=== PATIENT | female | born 1960 | race Caucasian/White ===

== ENCOUNTER → 2019-01-01 | Outpatient (CLI) | payer BC, SELFPAY ==
[2019-01-01 15:18] VITALS: BMI 23.1
--- NOTE | 2019-01-01 15:35 | RAD_ITS ---
STUDY: X-RAY - UNILATERAL RIBS ( RIGHT ) WITH CHEST REASON FOR EXAM: Female, 58 years old. Mid lateral rib pain following injury. TECHNIQUE - RIBS: 2 view(s) of the ribs. TECHNIQUE - CHEST: Single PA view of the chest. COMPARISON: None. FINDINGS - RIBS: Normal visualized ribs without a demonstrated fracture. FINDINGS - CHEST: The lungs are clear and expanded. There is no demonstrated pleural abnormality. Normal size heart. Normal mediastinum and kahlil. Normal visualized pulmonary arteries. Normal visualized aortic arch and descending thoracic aorta. Normal visualized thoracic spine. Normal visualized ribs, clavicles, and shoulders. There is no demonstrated abnormality of the visualized soft tissue structures of the upper abdomen. RAD/Ribs Uni Min 3V w/PA Chest IMPRESSION: RIBS: Normal x-ray examination of the ribs. CHEST: Normal x-ray examination of the chest. Electronically Signed: Sanju Brenner, at 16:00 EDT , Service support ,
== END | disposition home or self-care (01) ==
LOC: HPRAD 15:34
PROVIDERS: Family Provider Family Medicine; PCP Family Medicine; Referring Provider Physician Assistant; Visit Provider Physician Assistant
DX: S29.9XXA Unspecified injury of thorax, initial encounter (principal)
CPT/HCPCS: 71101

== ENCOUNTER → 2019-08-22 11:05 | Outpatient (CLI) | payer BC, SELFPAY ==
[2019-01-01 15:18] VITALS: BMI 23.1
--- NOTE | 2019-08-22 11:15 | RAD_ITS ---
STUDY: X-RAY CHEST REASON FOR EXAM: Female, 59 years old. Rib pain TECHNIQUE: Frontal and lateral views of the chest COMPARISON: 01/01/2019 FINDINGS: The lungs are clear. There are no pleural effusions. There is no pneumothorax. The heart is normal in size. The visualized osseous structures are within normal limits. RAD/Chest PA and Lateral IMPRESSION: No acute thoracic pathology. If the patient''s rib pain persists, consider dedicated rib radiographs. Electronically Signed: Leander James, at 17:00 EDT Tel , Service support ,
== END ==
PROVIDERS: PCP Family Medicine Geriatric Medicine; Referring Provider Family Medicine Geriatric Medicine; Visit Provider Family Medicine Geriatric Medicine
DX: R07.89 Other chest pain (principal)
CPT/HCPCS: 71046

== ENCOUNTER → 2019-08-22 11:06 | Outpatient (CLI) | payer BC, SELFPAY ==
[2019-01-01 15:18] VITALS: BMI 23.1
[2019-08-22 12:41] LABS: Absolute Lymphocyte Count 1.89 X10^3/uL (0.83-4.51); Absolute Neutrophil Count 2.5 X10^3/uL (2.0-7.7); Basophil# 0.05 X10^3/uL; Eosinophil# 0.09 X10^3/uL; Eosinophils% 1.8 % (0-5); Hematocrit 39.5 % (37-47); Hemoglobin 12.6 g/dL (12.0-15.0); Lymphocyte # 1.89 X10^3/ul (4.0); Lymphocyte % 38.7 % (19-41); Mean Corp Hgb Conc 31.9 g/dL (32-36); Mean Corpuscular Hgb 30.4 pg (27.0-32.0); Mean Corpuscular Volume 95.2 fL (81-99); Mean Platelet Vol. 11.4 fl (6.2-12.0); Monocyte# 0.36 X10^3/uL; Monocyte% 7.4 % (0-10); NRBC Flagged by Analyzer 0 % (0-5); Neutrophil # 2.49 X10^3/uL (2.7-7.7); Neutrophil % 50.9 % (47-70); POSITIVE MORPHOLOGY YES; Platelet Count 144 K/mm3 (150-450); RBC Distribution Width CV 12.9 % (11.6-14.6); RBC Distribution Width SD 44.5 fl (35.1-43.9); Red Blood Count 4.15 M/mm3 (4.2-5.4); White Blood Count 4.9 K/mm3 (4.4-11.0)
[2019-08-22 12:45] LABS: AST(SGOT) 17 U/L (15-37); Alanine Aminotransfer ALT/SGPT 20 U/L (13-56); Albumin, Serum 3.8 g/dL (3.2-5.0); Alkaline Phosphatase 69 U/L (45-117); Anion Gap 6 (5-15); BUN 16 mg/dL (7-18); BUN/Creat Ratio 29.5 RATIO (10-20); Calcium,Total 8.9 mg/dL (8.5-10.1); Chloride 107 mmol/L (98-107); Creatinine, Serum 0.54 mg/dL (0.55-1.02); EST Glomerular Filtration Rate 123 mL/min (>60); Est Glom Filt Rate - Afr Amer 149 mL/min (>60); Globulin 3.7 g/dL (2.2-4.2); Glucose 98 mg/dL (74-106); Potassium 3.8 mmol/L (3.5-5.1); Protein, Total 7.5 g/dL (6.4-8.2); Sodium Level 140 mmol/L (136-145)
[2019-08-22 12:52] LABS: Differential Indicated SCAN CRITERIA MET
[2019-08-22 13:17] LABS: Hepatitis C Antibody Non-Reactive (Nonreactive); Vitamin D,25 Hydroxy 35.4 ng/mL
[2019-08-22 13:36] LABS: Reactive Lymphocyte RARE
== END ==
PROVIDERS: PCP Family Medicine; Visit Provider Family Medicine Geriatric Medicine
DX: E55.9 Vitamin D deficiency, unspecified (principal); R53.83 Other fatigue; Z13.89 Encounter for screening for other disorder
CPT/HCPCS: 36415; 80053; 82306; 84443; 85025; 86803

== ENCOUNTER → 2019-08-30 11:16 | Outpatient (CLI) | payer BC, SELFPAY ==
[2019-08-22 13:15] VITALS: BMI 23.1
[2019-08-30 12:52] LABS: T3 Uptake 40 % (30-39); T4 Free Direct 1.44 ng/dL (0.76-1.46)
== END ==
PROVIDERS: PCP Family Medicine Geriatric Medicine; Visit Provider Family Medicine Geriatric Medicine
DX: E03.9 Hypothyroidism, unspecified (principal)
CPT/HCPCS: 36415; 84439; 84479

== ENCOUNTER → 2019-09-05 08:00 | Outpatient (CLI) | payer BC, SELFPAY ==
[2019-08-22 13:15] VITALS: BMI 23.1
--- NOTE | 2019-09-05 07:53 | BI_ITS ---
MAMMOGRAPHY - BILATERAL SCREENING REASON FOR EXAM: Female, 59 years old. Routine annual screening examination. PERTINENT HISTORY: Sister with breast cancer. Remote left excisional breast biopsy. TECHNIQUE: Digital bilateral breast shabbir (3D mammographic acquisition) in the CC and MLO projections. 2-D mediolateral oblique (MLO) and craniocaudad (CC) views of both breasts were obtained. CAD: Full Field Digital Mammography with Computer Added Detection was performed. COMPARISON: Comparison is made with prior abdomen examination dated August 31, 2017. FINDINGS: Breast Composition: The breasts are extremely dense, which lowers the sensitivity of mammography. There are no dominant masses or suspicious calcifications. Focal architectural distortion is seen in the axillary region of the left breast in keeping with the history of prior excisional breast biopsy. No other significant abnormalities are identified. There has been no significant change since the prior study. BI/SCREEN MAMM (CAD) W/SHABBIR BILAT IMPRESSION: Stable bilateral screening mammogram. Yearly follow-up mammogram recommended. (A) ASSESSMENT CATEGORY: BIRADS Category 2: Benign. A letter regarding these results will be sent to the patient by the facility within 30 days. Approximately 10% of breast cancers are not detected by mammography. A normal mammogram should not delay biopsy of a clinically suspicious abnormality. [id number] Electronically Signed: Sanju Brenner, at 14:37 EDT , Service support ,
== END ==
PROVIDERS: PCP Family Medicine Geriatric Medicine; Referring Provider Family Medicine Geriatric Medicine; Visit Provider Family Medicine Geriatric Medicine
DX: Z12.31 Encounter for screening mammogram for malignant neoplasm of breast (principal)
CPT/HCPCS: 77063; 77067

== ENCOUNTER → 2019-10-17 13:50 | Outpatient (CLI) | payer BC, SELFPAY ==
[2019-10-17 10:35] VITALS: BMI 23.1
[2019-10-19 17:41] LABS: HPV APTIMA, High Risk Negative (Negative)
== END ==
PROVIDERS: PCP Family Medicine Geriatric Medicine; Visit Provider Obstetrics & Gynecology
DX: Z12.4 Encounter for screening for malignant neoplasm of cervix (principal)
CPT/HCPCS: 87624; 88175; G0145

== ENCOUNTER → 2020-08-15 09:46 | Outpatient (CLI) | payer BC, SELFPAY ==
[2020-04-04 09:55] VITALS: BMI 22.5
--- NOTE | 2020-08-15 09:50 | RAD_ITS ---
STUDY: X-RAY - RIGHT FOOT CLINICAL: Female, 60 years old. FOOT PAIN TECHNIQUE: 3 view(s) of the foot. COMPARISON: None. FINDINGS: Normal talus, calcaneus, and tarsal bones. Small plantar calcaneal enthesophyte. Normal visualized subtalar, talonavicular, calcaneocuboid, tarsal and tarsometatarsal articulations. Normal metatarsi. There is degenerative arthrosis of the metatarsophalangeal joint of the hallux with a hallux valgus deformity. Normal tibial and fibular sesamoid bones. Normal interphalangeal joint of the great toe. Normal phalanges of the great toe. Normal second through fifth metatarsophalangeal joints. Normal interphalangeal joints and phalanges of the lesser toes. The soft tissue structures are unremarkable. RAD/Foot min 3 Views IMPRESSION: Moderate hallux valgus deformity. Electronically Signed: Johnny Whitaker MD at 10:03 EDT Tel , Service support ,
== END ==
PROVIDERS: PCP Family Medicine Geriatric Medicine; Referring Provider Family Medicine Geriatric Medicine; Visit Provider Family Medicine Geriatric Medicine
DX: M79.609 Pain in unspecified limb (principal)
CPT/HCPCS: 73630

== ENCOUNTER → 2020-08-27 11:15 | Outpatient (CLI) | payer BC, SELFPAY ==
[2020-04-04 09:55] VITALS: BMI 22.5
[2020-08-27 11:53] LABS: Absolute Lymphocyte Count 2.34 X10^3/uL (0.83-4.51); Absolute Neutrophil Count 3.4 X10^3/uL (2.0-7.7); Basophil# 0.07 X10^3/uL; Basophil% 1.1 % (0-1); Eosinophil# 0.18 X10^3/uL; Eosinophils% 2.7 % (0-5); Hematocrit 41.1 % (37-47); Hemoglobin 13.1 g/dL (12.0-15.0); Lymphocyte # 2.34 X10^3/ul (0.83-4.51); Lymphocyte % 35.7 % (19-41); Mean Corp Hgb Conc 31.9 g/dL (32-36); Mean Corpuscular Hgb 29.7 pg (27.0-32.0); Mean Corpuscular Volume 93.2 fL (81-99); Mean Platelet Vol. 10.3 fl (6.2-12.0); Monocyte# 0.53 X10^3/uL; Monocyte% 8.1 % (0-10); NRBC Flagged by Analyzer 0 % (0-5); Neutrophil # 3.41 X10^3/uL (2.7-7.7); Neutrophil % 51.9 % (47-70); Platelet Count 180 K/mm3 (150-450); RBC Distribution Width CV 13.2 % (11.6-14.6); RBC Distribution Width SD 45.1 fl (35.1-43.9); Red Blood Count 4.41 M/mm3 (4.2-5.4); White Blood Count 6.6 K/mm3 (4.4-11.0)
[2020-08-27 12:39] LABS: ALB/GLOB Ratio 1.1 RATIO (0.9-2.4); AST(SGOT) 9 U/L (15-37); Alanine Aminotransfer ALT/SGPT 17 U/L (13-56); Albumin, Serum 3.9 g/dL (3.2-5.0); Alkaline Phosphatase 68 U/L (45-117); Anion Gap 6 (5-15); BUN 16 mg/dL (7-18); BUN/Creat Ratio 25.8 RATIO (10-20); Calcium,Total 8.8 mg/dL (8.5-10.1); Chloride 109 mmol/L (98-107); Creatinine, Serum 0.62 mg/dL (0.55-1.02); EST Glomerular Filtration Rate 105 mL/min (>60); Est Glom Filt Rate - Afr Amer 127 mL/min (>60); Globulin 3.5 g/dL (2.2-4.2); Glucose 94 mg/dL (74-106); Potassium 3.9 mmol/L (3.5-5.1); Protein, Total 7.4 g/dL (6.4-8.2); Sodium Level 140 mmol/L (136-145)
== END ==
PROVIDERS: PCP Family Medicine Geriatric Medicine; Visit Provider Family Medicine Geriatric Medicine
DX: R53.83 Other fatigue (principal)
CPT/HCPCS: 36415; 80053; 84443; 85025

== ENCOUNTER → 2020-09-10 16:03 | Outpatient (CLI) | payer BC, SELFPAY ==
[2020-04-04 09:55] VITALS: BMI 22.5
--- NOTE | 2020-09-10 16:06 | BI_ITS ---
MAMMOGRAPHY - BILATERAL SCREENING REASON FOR EXAM: Female, 60 years old. Routine annual screening examination. PERTINENT HISTORY: Sister with breast cancer. Remote left excisional breast biopsy. TECHNIQUE: Digital bilateral breast shabbir (3D mammographic acquisition) in the CC and MLO projections. 2-D mediolateral oblique (MLO) and craniocaudad (CC) views of both breasts were obtained. CAD: Full Field Digital Mammography with Computer Added Detection was performed. COMPARISON: Comparison is made with prior study dated 09/05/2019. FINDINGS: Breast Composition: The breasts are extremely dense, which lowers the sensitivity of mammography. There are no dominant masses or suspicious calcifications. No other significant abnormalities are identified. There has been no significant change since the prior study. BI/SCRN MAMM (CAD)W/SHABBIR BILAT IMPRESSION: Stable bilateral screening mammogram. Yearly follow-up mammogram recommended. (A) ASSESSMENT CATEGORY: BIRADS Category 1: Negative. A letter regarding these results will be sent to the patient by the facility within 30 days. Approximately 10% of breast cancers are not detected by mammography. A normal mammogram should not delay biopsy of a clinically suspicious abnormality. [id number] Electronically Signed: Sanju Brenner MD at 8:23 EDT , Service support ,
== END ==
PROVIDERS: PCP Family Medicine Geriatric Medicine; Referring Provider Family Medicine Geriatric Medicine; Visit Provider Family Medicine Geriatric Medicine
DX: Z12.31 Encounter for screening mammogram for malignant neoplasm of breast (principal)
CPT/HCPCS: 77063; 77067

== ENCOUNTER 2021-03-10 13:20 | Outpatient (CLI) | payer BC, SELFPAY | END 2021-03-10 23:59 | disposition short-term general hospital (02) | PROVIDERS: PCP Family Medicine Geriatric Medicine; Referring Provider Family Medicine Geriatric Medicine; Visit Provider Family Medicine Geriatric Medicine | DX: R68.83 Chills (without fever) (principal) | CPT/HCPCS: 87635; C9803; U0003; U0005 ==

== ENCOUNTER 2021-03-13 15:22 | Outpatient (CLI) | payer BC, SELFPAY ==
[2021-03-13 15:42] VITALS: BP 119/62; PULSE 60; RESP 16; TEMP 36.4; O2SAT 95; BMI 21.9
[2021-03-13] MEDS: 0.9% Saline Lock 10 ML Syringe IV (15:46)
[2021-03-13 16:15] VITALS: BP 132/75; PULSE 63; RESP 16; TEMP 36.7; O2SAT 99
[2021-03-13 17:00] VITALS: BP 139/72; PULSE 62; RESP 16; TEMP 36.4; O2SAT 99
== END 2021-03-13 23:59 | disposition home or self-care (01) ==
LOC: MS3OUT 15:22 → MS3 15:23
PROVIDERS: PCP Family Medicine Geriatric Medicine; Referring Provider Nurse Practitioner Adult Health; Visit Provider Nurse Practitioner Adult Health
DX: Z23 Encounter for immunization (principal); U07.1 COVID-19
CPT/HCPCS: J7050; M0243; A4216; Q0244

== ENCOUNTER → 2021-09-02 | Outpatient (CLI) | payer BC, SELFPAY ==
[2021-09-02 11:16] LABS: Absolute Lymphocyte Count 1.69 X10^3/uL (0.83-4.51); Absolute Neutrophil Count 2.2 X10^3/uL (2.0-7.7); Basophil# 0.04 X10^3/uL; Basophil% 0.9 % (0-1); Eosinophil# 0.15 X10^3/uL; Eosinophils% 3.3 % (0-5); Hemoglobin 12.7 g/dL (12.0-15.0); Lymphocyte # 1.69 X10^3/ul (0.83-4.51); Mean Corp Hgb Conc 31.8 g/dL (32-36); Mean Corpuscular Hgb 30.2 pg (27.0-32.0); Mean Corpuscular Volume 95.2 fL (81-99); Mean Platelet Vol. 11.7 fl (6.2-12.0); Monocyte# 0.47 X10^3/uL; Monocyte% 10.3 % (0-10); NRBC Flagged by Analyzer 0 % (0-5); Neutrophil # 2.21 X10^3/uL (2.7-7.7); Neutrophil % 48.3 % (47-70); POSITIVE MORPHOLOGY YES; Platelet Count 152 K/mm3 (150-450); RBC Distribution Width CV 12.8 % (11.6-14.6); RBC Distribution Width SD 44.6 fl (35.1-43.9); White Blood Count 4.6 K/mm3 (4.4-11.0)
[2021-09-02 11:20] LABS: Differential Indicated SCAN CRITERIA MET
[2021-09-02 11:41] LABS: ALB/GLOB Ratio 1.1 RATIO (0.9-2.4); AST(SGOT) 16 U/L (15-37); Alanine Aminotransfer ALT/SGPT 22 U/L (13-56); Albumin, Serum 3.7 g/dL (3.2-5.0); Alkaline Phosphatase 58 U/L (45-117); Anion Gap 4 (5-15); BUN 20 mg/dL (7-18); BUN/Creat Ratio 34.6 RATIO (10-20); Chloride 108 mmol/L (98-107); Creatinine, Serum 0.58 mg/dL (0.55-1.02); EST Glomerular Filtration Rate 114 mL/min (>60); Est Glom Filt Rate - Afr Amer 137 mL/min (>60); Globulin 3.3 g/dL (2.2-4.2); Glucose 98 mg/dL (74-106); Potassium 4.3 mmol/L (3.5-5.1); Sodium Level 139 mmol/L (136-145); Thyroid Stim Hormone (TSH) 0.07 uIU/mL (0.358-3.74)
[2021-09-02 11:58] LABS: Atypical Lymphocyte 1+ %; Platelet Estimate ADEQUATE (ADEQ); Red Cell Morphology NORM C+C NORMAL (NORM C&C)
== END | disposition home or self-care (01) ==
LOC: POLAB3 09:04
PROVIDERS: PCP Family Medicine Geriatric Medicine; Visit Provider Family Medicine Geriatric Medicine
DX: R53.83 Other fatigue (principal)
CPT/HCPCS: 36415; 80053; 84443; 85025

== ENCOUNTER → 2021-09-16 | Outpatient (CLI) | payer BC, SELFPAY ==
--- NOTE | 2021-09-16 12:26 | BI_ITS ---
MAMMOGRAPHY - BILATERAL SCREENING REASON FOR EXAM: Female, 61 years old. Routine annual screening examination. PERTINENT HISTORY: Sister with breast cancer. Remote left excisional breast biopsy. TECHNIQUE: Digital bilateral breast shabbir (3D mammographic acquisition) in the CC and MLO projections. 2-D mediolateral oblique (MLO) and craniocaudad (CC) views of both breasts were obtained. CAD: Full Field Digital Mammography with Computer Added Detection was performed. COMPARISON: Comparison is made with prior study dated 09/10/2020 and 09/05/2019. FINDINGS: Breast Composition: The breasts are extremely dense, which lowers the sensitivity of mammography. Focal area of architectural distortion is seen in the upper aspect of the right breast on the mediolateral oblique view. The patient will be recalled for additional views including compression spot views and 90 degree lateral view. No other significant abnormalities are identified. BI/SCRN MAMM (CAD)W/SHABBIR BILAT IMPRESSION: Focal area of architectural distortion seen in the upper aspect of the right breast on the MLO view. The patient will be recalled for additional views. Recall Side: Right Breast ASSESSMENT CATEGORY: BIRADS Category 0: Incomplete. Need additional imaging evaluation. A letter regarding these results will be sent to the patient by the facility within 30 days. Approximately 10% of breast cancers are not detected by mammography. A normal mammogram should not delay biopsy of a clinically suspicious abnormality. [id number] Electronically Signed: Sanju Brenner MD at 13:37 EDT ,
--- NOTE | 2021-09-16 12:52 | CT_ITS ---
STUDY: LOW DOSE CT LUNG CANCER SCREENING REASON FOR EXAM: Female, 61 years old. SCREENING. Patient smoked 1 pack per day for 30 years. RADIATION DOSAGE (If Supplied By Facility): CTDIvol = ( 3.02 ) mGy, DLP = ( 109.48 ) mGycm TECHNIQUE: No contrast was administered. Low dose technique was utilized (average mAS-38 and kVp 120). 1.25 mm axial source images with a slice interval of 1.25-mm were reconstructed in lung windows. 2.5 mm axial source images with a slice interval of 2.5-mm were reconstructed in lung windows. 5.0 mm axial source images with a slice interval of 5.0-mm were reconstructed in soft tissue windows. COMPARISON: Comparison is made with prior chest radiograph dated 08/22/2019. NODULES: No suspicious nodules are seen. Emphysema: Hyperinflation. Emphysematous changes involving both lungs more prominent in the upper lobes with evidence of a bilateral apical scarring. Findings suggestive of a linear scarring in the posterior medial segment of the left lower lobe and anterior medial aspect of the right middle lobe. Endobronchial lesion: None Aorta: Atherosclerotic plaque formation of the aortic arch and descending thoracic aorta. CORONARY ARTERIES: Coronary artery calcification is seen. Heart: Unremarkable Pulmonary artery: Unremarkable Mediastinal nodes: Small mediastinal adenopathy. Other chest and abdominal findings: CT/Low Dose CT Lung Screening IMPRESSION: Lung-RADS category 2 - Continue annual screening with LDCT in 12 months. IMPORTANT NOTES FOR USE: ACR Lung-RADS Version 1.1 Assessment Categories Release Date: 2018 Category: Coded 0-4 bases on nodule(s) with highest degree of suspicion. Negative screen is defined as categories 1 and 2; a positive screen is defined as categories 3 and 4. Category 3 and 4A nodules that are unchanged on interval CT should be coded as category 2, and individuals returned to screening in 12 months. Category 4X: Category 3 or 4 nodules with additional imaging findings that increase the suspicion of lung cancer, such as spiculation, GGN that doubles in size in 1 year, enlarged lymph notes, etc. Category Modifiers: S (significant finding unrelated to lung cancer) Electronically Signed: Sanju Brenner MD at 13:23 EDT ,
== END | disposition home or self-care (01) ==
PROVIDERS: PCP Family Medicine Geriatric Medicine; Visit Provider Family Medicine Geriatric Medicine
DX: Z12.31 Encounter for screening mammogram for malignant neoplasm of breast (principal); F17.210 Nicotine dependence, cigarettes, uncomplicated
CPT/HCPCS: 71271; 77063; 77067

== ENCOUNTER → 2021-09-18 | Outpatient (CLI) | payer BC, SELFPAY ==
--- NOTE | 2021-09-18 08:46 | BI_ITS ---
MAMMOGRAPHY - UNILATERAL DIAGNOSTIC: RIGHT BREAST REASON FOR EXAM: Female, 61 years old. Abnormal screening mammogram. PERTINENT HISTORY: Sister with breast cancer. Remote left excisional breast biopsy. TECHNIQUE: Compression magnification views of the right breast and 90 degree lateral view of the right breast were obtained. CAD: Full Field Digital Mammography with Computer Added Detection was performed. COMPARISON: Comparison is made with prior study dated 09/16/2021. FINDINGS: Breast Composition: The breasts are extremely dense, which lowers the sensitivity of mammography. There are no dominant masses or suspicious calcifications. The previously seen focal area of architectural distortion is not seen on the compression views. Routine mammographic follow-up is recommended. No other significant abnormalities are identified. BI/DIAG MAMM W/CAD, UNILAT IMPRESSION: Negative unilateral diagnostic mammogram. Yearly followup mammogram recommended. (A) ASSESSMENT CATEGORY: BIRADS Category 2: Benign. A letter regarding these results will be sent to the patient by the facility within 30 days. Approximately 10% of breast cancers are not detected by mammography. A normal mammogram should not delay biopsy of a clinically suspicious abnormality. Electronically Signed: Sanju Brenner MD at 9:34 EDT ,
== END | disposition home or self-care (01) ==
LOC: OPBI 08:44
PROVIDERS: PCP Family Medicine Geriatric Medicine; Visit Provider Family Medicine Geriatric Medicine
DX: R92.8 Other abnormal and inconclusive findings on diagnostic imaging of breast (principal)
CPT/HCPCS: 77065

== ENCOUNTER → 2021-10-22 | Outpatient (CLI) | payer BC, SELFPAY ==
[2021-10-22 17:43] LABS: Thyroid Stim Hormone (TSH) 0.14 uIU/mL (0.358-3.74)
== END | disposition home or self-care (01) ==
LOC: POLAB3 14:10
PROVIDERS: PCP Family Medicine Geriatric Medicine; Visit Provider Family Medicine Geriatric Medicine
DX: E03.9 Hypothyroidism, unspecified (principal)
CPT/HCPCS: 36415; 84443

== ENCOUNTER → 2021-12-24 | Outpatient (CLI) | payer BC, SELFPAY ==
[2021-12-24 12:57] LABS: Thyroid Stim Hormone (TSH) 0.39 uIU/mL (0.358-3.74)
== END | disposition home or self-care (01) ==
LOC: POLAB3 11:02
PROVIDERS: PCP Family Medicine Geriatric Medicine; Visit Provider Family Medicine Geriatric Medicine
DX: E03.9 Hypothyroidism, unspecified (principal)
CPT/HCPCS: 36415; 84443

== ENCOUNTER → 2022-09-08 | Outpatient (CLI) | payer BC, SELFPAY ==
[2022-09-08 12:22] LABS: Absolute Lymphocyte Count 1.78 X10^3/uL (0.83-4.51); Absolute Neutrophil Count 2.1 X10^3/uL (2.0-7.7); Basophil# 0.05 X10^3/uL; Basophil% 1.1 % (0-1); Eosinophil# 0.13 X10^3/uL; Eosinophils% 2.9 % (0-5); Hemoglobin 13.2 g/dL (12.0-15.0); Lymphocyte # 1.78 X10^3/ul (0.83-4.51); Lymphocyte % 39.8 % (19-41); Mean Corpuscular Hgb 30.5 pg (27.0-32.0); Mean Corpuscular Volume 92.4 fL (81-99); Mean Platelet Vol. 12.1 fl (6.2-12.0); Monocyte# 0.42 X10^3/uL; Monocyte% 9.4 % (0-10); NRBC Flagged by Analyzer 0 % (0-5); Neutrophil # 2.08 X10^3/uL (2.7-7.7); Neutrophil % 46.6 % (47-70); Platelet Count 160 K/mm3 (150-450); RBC Distribution Width CV 12.8 % (11.6-14.6); RBC Distribution Width SD 43.5 fl (35.1-43.9); Red Blood Count 4.33 M/mm3 (4.2-5.4); White Blood Count 4.5 K/mm3 (4.4-11.0)
[2022-09-08 12:53] LABS: AST(SGOT) 18 U/L (15-37); Alanine Aminotransfer ALT/SGPT 19 U/L (13-56); Albumin, Serum 3.7 g/dL (3.2-5.0); Alkaline Phosphatase 73 U/L (45-117); Anion Gap 4 (5-15); BUN 17 mg/dL (7-18); BUN/Creat Ratio 26.4 RATIO (10-20); Chloride 108 mmol/L (98-107); Creatinine, Serum 0.64 mg/dL (0.55-1.02); EST Glomerular Filtration Rate 100 mL/min (>60); Est Glom Filt Rate - Afr Amer 121 mL/min (>60); Globulin 3.6 g/dL (2.2-4.2); Glucose 94 mg/dL (74-106); Potassium 3.9 mmol/L (3.5-5.1); Protein, Total 7.3 g/dL (6.4-8.2); Sodium Level 138 mmol/L (136-145)
== END | disposition home or self-care (01) ==
LOC: POLAB3 09:53
PROVIDERS: PCP Family Medicine Geriatric Medicine; Visit Provider Family Medicine Geriatric Medicine
DX: R53.83 Other fatigue (principal)
CPT/HCPCS: 36415; 80053; 84443; 85025

== ENCOUNTER → 2022-09-20 | Outpatient (CLI) | payer BC, SELFPAY ==
--- NOTE | 2022-09-20 14:37 | BI_ITS ---
MAMMOGRAPHY - BILATERAL SCREENING 3-D TOMOSYNTHESIS REASON FOR EXAM: Female, 62 years old. Routine screening PERTINENT HISTORY: Sister with breast cancer.. TECHNIQUE: 2-D mammograms and 3-D Tomosynthesis of the breast (s) were performed. CAD was performed. COMPARISON: 09/16/2021 FINDINGS: The breast composition is heterogeneously dense that can obscure small breast masses. Scattered benign calcifications are seen. No dense spiculated masses or suspicious microcalcifications are identified. No architectural distortion is identified. There is no skin thickening or retraction. There has been no significant change since the prior study. BI/SCRN MAMM (CAD)W/SHABBIR BILAT IMPRESSION: No mammographic signs of malignancy. Routine yearly mammograms recommended. ASSESSMENT CATEGORY: BIRADS Category 2: Benign. A letter regarding these results will be sent to the patient by the facility within 30 days. FOLLOW UP RECOMMENDATION: Yearly follow up mammogram recommended. (A) Approximately 10% of breast cancers are not detected by mammography. A normal mammogram should not delay biopsy of a clinically suspicious abnormality. Electronically Signed: Daniel Joy MD at 20:53 EDT ,
== END | disposition home or self-care (01) ==
LOC: OPBI 14:36
PROVIDERS: PCP Family Medicine Geriatric Medicine; Referring Provider Family Medicine Geriatric Medicine; Visit Provider Family Medicine Geriatric Medicine
DX: Z12.31 Encounter for screening mammogram for malignant neoplasm of breast (principal)
CPT/HCPCS: 77063; 77067

== ENCOUNTER → 2023-09-15 | Outpatient (CLI) | payer BC, SELFPAY ==
[2023-09-15 10:18] LABS: Absolute Lymphocyte Count 2.01 X10^3/uL (0.83-4.51); Absolute Neutrophil Count 2.7 X10^3/uL (2.0-7.7); Basophil# 0.05 X10^3/uL; Eosinophils% 1.9 % (0-5); Hematocrit 36.6 % (37-47); Hemoglobin 11.9 g/dL (12.0-15.0); Lymphocyte # 2.01 X10^3/ul (0.83-4.51); Lymphocyte % 38.7 % (19-41); Mean Corp Hgb Conc 32.5 g/dL (32-36); Mean Corpuscular Hgb 30.2 pg (27.0-32.0); Mean Corpuscular Volume 92.9 fL (81-99); Mean Platelet Vol. 11.4 fl (6.2-12.0); Monocyte# 0.31 X10^3/uL; NRBC Flagged by Analyzer 0 % (0-5); Neutrophil # 2.73 X10^3/uL (2.7-7.7); Neutrophil % 52.4 % (47-70); Platelet Count 154 K/mm3 (150-450); RBC Distribution Width CV 12.8 % (11.6-14.6); RBC Distribution Width SD 43.7 fl (35.1-43.9); Red Blood Count 3.94 M/mm3 (4.2-5.4); White Blood Count 5.2 K/mm3 (4.4-11.0)
[2023-09-15 10:50] LABS: ALB/GLOB Ratio 1.1 RATIO (0.9-2.4); AST(SGOT) 19 U/L (15-37); Alanine Aminotransfer ALT/SGPT 21 U/L (13-56); Albumin, Serum 3.7 g/dL (3.2-5.0); Alkaline Phosphatase 65 U/L (45-117); Anion Gap 8 (5-15); BUN 23 mg/dL (7-18); BUN/Creat Ratio 36.1 RATIO (10-20); Calcium,Total 8.8 mg/dL (8.5-10.1); Chloride 107 mmol/L (98-107); Creatinine, Serum 0.64 mg/dL (0.55-1.02); EST Glomerular Filtration Rate 101 mL/min (>60); Est Glom Filt Rate - Afr Amer 122 mL/min (>60); Globulin 3.3 g/dL (2.2-4.2); Glucose 118 mg/dL (74-106); Sodium Level 138 mmol/L (136-145)
== END | disposition home or self-care (01) ==
PROVIDERS: PCP Family Medicine Geriatric Medicine; Visit Provider Family Medicine Geriatric Medicine
DX: R53.83 Other fatigue (principal)
CPT/HCPCS: 36415; 80053; 84443; 85025

== ENCOUNTER → 2023-09-23 | Outpatient (CLI) | payer BC, SELFPAY ==
--- NOTE | 2023-09-23 10:23 | BI_ITS ---
MAMMOGRAPHY - BILATERAL SCREENING REASON FOR EXAM: Female, 63 years old. Routine annual screening examination. PERTINENT HISTORY: Sister with breast cancer. Prior left excisional breast biopsy. TECHNIQUE: Digital bilateral breast shabbir (3D mammographic acquisition) in the CC and MLO projections. 2-D mediolateral oblique (MLO) and craniocaudad (CC) views of both breasts were obtained. CAD: Full Field Digital Mammography with Computer Added Detection was performed. COMPARISON: Comparison is made with prior study of September 20, 2022 and September 16, 2021. FINDINGS: Breast Composition: The breasts are extremely dense, which lowers the sensitivity of mammography. There are no dominant masses or suspicious calcifications. No other significant abnormalities are identified. There has been no significant change since the prior study. BI/SCRN MAMM (CAD)W/SHABBIR BILAT IMPRESSION: Stable bilateral screening mammogram. Yearly follow-up mammogram recommended. (A) ASSESSMENT CATEGORY: BIRADS Category 1: Negative. A letter regarding these results will be sent to the patient by the facility within 30 days. Approximately 10% of breast cancers are not detected by mammography. A normal mammogram should not delay biopsy of a clinically suspicious abnormality. [id number] Electronically Signed: Sanju Brenner MD at 11:03 EDT ,
== END | disposition home or self-care (01) ==
PROVIDERS: PCP Family Medicine Geriatric Medicine; Referring Provider Family Medicine Geriatric Medicine; Visit Provider Family Medicine Geriatric Medicine
DX: Z12.31 Encounter for screening mammogram for malignant neoplasm of breast (principal)
CPT/HCPCS: 77063; 77067

== ENCOUNTER 2023-12-19 08:00 | Outpatient (RCR) | payer BC, SELFPAY ==
--- NOTE | 2023-11-28 07:53 | HP.PTEVAL ---
Patient's Visit Information Visit Information Visit Information: TANJA BUSH is a 63 year old F referred to Physical Therapy by Dr. Vikash Redmond MD with a diagnosis of L shoulder pain. Date of Evaluation: 11/28/23 Physical Therapist: Nghia Quintana, DPT, OCS, CSCS Visit Plan Frequency: 2x /Week Duration: 4-6 Weeks Plan: 2x/week for 3-6 weeks for 1. STM L UT and neck area, manual cervical retraction ROM and PA mobs, can do some gentle traction 2. cervical Pamela ex progression of forces as tolerated ret, ext and postural correction. 3. strenggthening posture, neck and shouders 4. may do MH and TENS if needed to neck IE: Instruct HEP of cervical retraction 10x every two hours and postural correction/POC Subjective Subjective: L shoulder painful and sometimes into neck. Hurts burny after work and feels tense. Points to UT, releases with arm overhead. It started yrs ago mildly but worsening lately Has had a number of x rays that come back normal. Got cortisone shot in shoulder a couple weeks ago. then went on vacation. Injection helped 100% for a week, now starting to come back more, 50% back. After work is worse. 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 does not hurt on days off but 3/10. Basic ADLs all getting done, Lifting laundry baskets or grandkids may huirt worse. Hobbies include grandkids or work. Sleep is not inteerrupted but may take ibuprfoen if hurts real bad. No MRI or catscan Neck pops and cracks alot, not much pain, sometimes gets shock down the arm past elbow. Pain L scapular: Pain Intensity (Out of 10): 7 Pain Intensity Range: 0 and 8 Objective Objective: Posture is forward head and elevated protracted scap. Tender to touch L UT area nd pericervical mm UE aROM WFL and without pain strength shoulders elbows and wrists 4- without myotomal sensation WNL gross light touch in UE reflexes 1/3 bi and tri. - empty can,- extrotation lag, - labral tests, - HK and neer on L. to 48 cervical ext 55 with some L pain and rotations 70 without pain. retraction painful and limited and reproduces pain. + L c/s compression test. repeated rprotraction:produces pain L side of neck and worse ext motion c/s retraction repeated produces pulling pain, NE, centralized tightness. repeated ret/ext PDM and better motion : NE on pain. Balance/Special Test Scores Quick DASH Score: 31.8175 Goals Goal 1:: Pain in shoulder neck 1/109 at worst and 90% better Goal Time Frame: 4-6 Weeks Goal 2:: Patient work without increased pain in shoulder or neck Goal Time Frame: 4-6 Weeks Goal 3:: I appropriate HEp to minimize future problems Goal Time Frame: 4-6 Weeks Goal 4:: sit in proper head sagittal posture without cues Goal Time Frame: 4-6 Weeks Goal 5:: qucik dash score 15 or better Goal Time Frame: 4-6 Weeks Rehabilitation Potential Physical Therapy Diagnosis: neck and shoulder pain limiting comfortable funciton likely cervical in nature Rehabilitation Potential: Good Anticipated Interventions Patient/Client Instruction: Educate patient on: Condition and Plan of Care For the Purpose of:: To decrease pain, To increase ROM, To improve nutrient delivery to tissue, To improve muscle performance and motor function and To increase tolerance to activity/condition/position Therapeutic Exercise to Include: Strength training, Body mechanics, Postural training, Passive ROM and Active ROM For the Purpose of:: To decrease pain, To increase ROM, To improve nutrient delivery to tissue, To improve muscle performance and motor function and To increase tolerance to activity/condition/position Manual Therapy Techniques to Include: Mobilization, Passive ROM and Soft tissue mobilization For the Purpose of:: To decrease pain, To increase ROM, To improve nutrient delivery to tissue and To improve muscle performance and motor function TENS: Yes Thermo therapy (hot pack): Yes For the Purpose of:: To decrease pain, To increase ROM and To improve nutrient delivery to tissue Text: Thank you for the opportunity to evaluate your patient. For Medicare and Medicare HMO plans, please review the plan of care and approve it. It will need to be FAXED BACK to us at [phone] for Medicare purposes. For Medicare only, by signing this I certify the plan of care. Please let me know if there are questions or concerns regarding this plan of care. Physician Signature: Date:
--- NOTE | 2023-12-19 08:24 | HP.PTREVAL ---
Re-Evaluation Intro: Dr. Vikash Redmond MD, It has been my pleasure to treat TANJA BUSH over the last 7 visits for L shoulder pain. Please see the progress note below for an update on the physical therapy plan of care! Subjective Subjective: Still hurts pretty good after work. Seeing doctor after this visit today. Seems like is better than 3 weeks ago but flares up at work with constant movmemnet at work. Takes ibuprofen before bed and wakes up well. Lightning will shoot down arms at times after work. Injection was very helpful but pain is returning. Pain over weekend was high 9/10 from work at work. Relaxing at home can ease the pain. Activities at home are getting done but has to work through pain, liftin laundry baskets can be painful. Groceries are still painful getting out of car. Sleep is OK in elevated HOB is OK and takes ibuprofen. Wakes up with neck pain if sleeps flat. Home exercises of cervical retraction and extension are helpful. Objective Objective/Function: cervical AROm ext 40 and rotation R 45 and L 55 to start , limite dby pain b/w scapula. L shoulder AROM WFL adn without pain, in fact sometimes elevates it to relieve pain at work. strength in shoulders is 4-/5 without pain with flexion or abduction or empty can today. er/IR weak at 4- but not painful. + cervical compression test, - HK and - neer and - ext rotation lag test. Clinically is presenting with very few positive Rc or shoulder tests but many neck dysfunciton possibly derangement in nature. this should be considered in differential diagnosis. Plan Plan Plan: Pt to doctor , see note. If no other interventions recommended then plan to continue 2x/week for 3 weeks for lower cervical ext and mobs, manual traction and cervical postural strength Balance/Gait/Functional tests Balance/Special Test Scores Quick DASH Score: 43.1800 Goals Goals Goal 1:: Pain in shoulder neck 1/109 at worst and 90% better Goal Time Frame: 4-6 Weeks Goal Progress: slow Goal 2:: Patient work without increased pain in shoulder or neck Goal Time Frame: 4-6 Weeks Goal Progress: Not Progressing Goal 3:: I appropriate HEp to minimize future problems Goal Time Frame: 4-6 Weeks Goal Progress: Progressing Goal 4:: sit in proper head sagittal posture without cues Goal Time Frame: 4-6 Weeks Goal Progress: Progressing Goal 5:: qucik dash score 15 or better Goal Time Frame: 4-6 Weeks Goal Progress: Not Progressing Anticipated Interventions Anticipated Interventions Patient/Client Instruction: Educate patient on: Condition and Plan of Care For the Purpose of:: To decrease pain, To increase ROM, To improve nutrient delivery to tissue, To improve muscle performance and motor function and To increase tolerance to activity/condition/position Therapeutic Exercise to Include: Strength training, Body mechanics, Postural training, Passive ROM and Active ROM For the Purpose of:: To decrease pain, To increase ROM, To improve nutrient delivery to tissue, To improve muscle performance and motor function and To increase tolerance to activity/condition/position Manual Therapy Techniques to Include: Mobilization, Passive ROM and Soft tissue mobilization For the Purpose of:: To decrease pain, To increase ROM, To improve nutrient delivery to tissue and To improve muscle performance and motor function TENS: Yes Thermo therapy (hot pack): Yes For the Purpose of:: To decrease pain, To increase ROM and To improve nutrient delivery to tissue Re-Evaluation Ending Re-evaluation ending: Please do not hesitate to contact me at [phone] by phone or if you have questions or concerns regarding this new plan of care! Sincerely, Nghia Quintana, DPT, OCS, CSCS
--- NOTE | 2024-02-13 12:41 | HP.PT.NRP ---
Patient Information Patient Information: TANJA BUSH was seen in my office for initial evaluation on 11/28/23. The following Plan of Care was established for this patient: POC Established Initial Frequency: 2x /Week Initial Duration: 4-6 Weeks Anticipated Interventions Patient/Client Instruction: Educate patient on: Condition and Plan of Care For the Purpose of:: To decrease pain, To increase ROM, To improve nutrient delivery to tissue, To improve muscle performance and motor function and To increase tolerance to activity/condition/position Therapeutic Exercise to Include: Strength training, Body mechanics, Postural training, Passive ROM and Active ROM For the Purpose of:: To decrease pain, To increase ROM, To improve nutrient delivery to tissue, To improve muscle performance and motor function and To increase tolerance to activity/condition/position Manual Therapy Techniques to Include: Mobilization, Passive ROM and Soft tissue mobilization For the Purpose of:: To decrease pain, To increase ROM, To improve nutrient delivery to tissue and To improve muscle performance and motor function TENS: Yes Thermo therapy (hot pack): Yes For the Purpose of:: To decrease pain, To increase ROM and To improve nutrient delivery to tissue Last Seen Last Seen: This patient was last seen in our office 12/19/23. Pertinent comments regarding their Physical therapy will appear below: Pt seen 7 visits of POC and was 50% better. She was to return to doctor for next step and contact me if she needed to return to therapy. At this point, it has been over 6 weeks and I will discontinue from my care. At this point I will be discontinuing this patient from physical therapy. I would be happy to see this patient again in the future if found appropriate by the physician. Thank you! Nghia Quintana, DPT, OCS, CSCS Balance/Gait/Functional tests Balance/Special Test Scores Quick DASH Score: 43.1800
== END 2023-12-19 19:00 | disposition home or self-care (01) ==
LOC: PT 08:00
PROVIDERS: PCP Family Medicine Geriatric Medicine; Referring Provider Orthopaedic Surgery Sports Medicine; Visit Provider Orthopaedic Surgery Sports Medicine
DX: M25.512 Pain in left shoulder (principal)
CPT/HCPCS: 97014; 97110; 97140; 97161; 97530; G0283

== ENCOUNTER → 2024-09-17 | Outpatient (CLI) | payer BC, SELFPAY ==
[2024-09-17 10:18] LABS: AST(SGOT) 21 U/L (<=31); Alanine Aminotransfer ALT/SGPT 14 U/L (<=34); Albumin, Serum 4.4 g/dL (3.4-4.8); Alkaline Phosphatase 61 U/L (35-104); Anion Gap 10 (5-15); BUN 25 mg/dL (4-19); BUN/Creat Ratio 40.0 RATIO (10-20); Calcium,Total 9.2 mg/dL (7.6-11.0); Carbon Dioxide 25.6 mmol/L (21.0-32.0); Chloride 105 mmol/L (98-108); Globulin 2.6 g/dL (2.2-4.2); Glucose 93 mg/dL (70-99); Potassium 4.3 mmol/L (3.3-5.1)
[2024-09-17 10:55] LABS: Hematocrit 39.4 % (37-47); Hemoglobin 12.9 g/dL (12.0-15.0); Red Blood Count 4.23 M/mm3 (4.2-5.4); White Blood Count 5.1 K/mm3 (4.4-11.0)
[2024-09-17 10:56] LABS: Immature Granulocytes Count 0.010 X10^3/uL (0.0-0.0); Mean Corp Hgb Conc 32.7 g/dL (32-36); Mean Corpuscular Volume 93.1 fL (81-99); Mean Platelet Vol. 11.9 fl (6.2-12.0); Platelet Count 164 K/mm3 (150-450); RBC Distribution Width CV 13.3 % (11.6-14.6); RBC Distribution Width SD 46.0 fl (35.1-43.9)
== END | disposition home or self-care (01) ==
LOC: POLAB3 08:55
PROVIDERS: PCP Family Medicine Geriatric Medicine; Visit Provider Family Medicine Geriatric Medicine
DX: R53.83 Other fatigue (principal)
CPT/HCPCS: 36415; 80053; 84443; 85025

== ENCOUNTER → 2024-09-24 | Outpatient (CLI) | payer BC, SELFPAY ==
--- NOTE | 2024-09-24 16:04 | BI_ITS ---
EXAM: SCRN MAMM (CAD)W/SHABBIR BILAT DATE: 09/24/2024 CLINICAL HISTORY: F, Age 64 y/o , SCREENING TECHNIQUE: SCRN MAMM (CAD)W/SHABBIR BILAT COMPARISON: Prior exam(s) were compared FINDINGS: TISSUE DENSITY: The breasts are heterogeneously dense, which may obscure small masses. Bilateral Breast Mammographic Findings: No suspicious masses, calcifications or other abnormalities are identified. BI/SCRN MAMM (CAD)W/SHABBIR BILAT IMPRESSION: No mammographic evidence of malignancy. OVERALL FINAL ASSESSMENT BI-RADS 1: NEGATIVE. RECOMMENDATION: Routine annual follow-up in 1 Year A letter with findings and recommendations will be mailed to the patient. Reading Location: [id number]
--- OUTSIDE RECORDS SUMMARY | 2024-09-24 21:24 | XMS RPT_ITS | CCD ---
Author Organization [facility] Care Team Providers Care Cash Management Specialist Name Role Phone Jose, Dr. Gumaro Matta Primary Care Provider Jose, Dr. Gumaro Matta Referring Provider [phone] Bob LOUIE, SEAT TRIMMER-C Belkis Attending Provider Jose MELTON, Dr. Guamro Matta Primary Care Provider Jose MELTON, Dr. Gumaro Matta Referring Provider [phone] Kwasi LOUIE-CBeto Attending Provider [phone] Jose MELTON, Dr. Gumaro Matta Attending Provider [phone] Jose, Gumaro Chi Referring Unavailable Jose, Gumaro Chi Primary Care Unavailable Aydee Delatorre Attending Unavailable Arun Corral Attending Unavailable Jose, Gumaro Chi Primary Care Unavailable Jose, Gumaro Chi Primary Care Unavailable Jose, Gumaro Chi Attending Unavailable Jose, Gumaro Chi Referring Unavailable Jose, Gumaro Chi Primary Care Unavailable Jose, Gumaro Chi Attending Unavailable Jose, Gumaro Chi Primary Care Unavailable Jose, Gumaro Chi Referring Unavailable Jose, Gumaro Chi Attending Unavailable Jose, Gumaro Chi Primary Care Unavailable Jose, Gumaro Chi Attending Unavailable Jose, Gumaro Chi Referring Unavailable Jose, Gumaro Chi Primary Care Unavailable Jose, Gumaro Chi Attending Unavailable Jose, Gumaro Chi Primary Care Unavailable Vikash Redmond Attending Unavailable Vikash Redmond Referring Unavailable Jose, Gumaro Chi Primary Care Unavailable Toño Villafuerte Attending Unavailable Jose, Gumaro Chi Referring Unavailable Jose, Gumaro Chi Referring Unavailable Jose, Gumaro Chi Primary Care Unavailable Vikash Redmond Attending Unavailable Jose, Gumaro Chi Primary Care Unavailable Roof Beto LOUIE Attending Unavailable Jose, Gumaro Chi Referring Unavailable Leander Park Attending Unavailable Jose, Gumaro Chi Primary Care Unavailable Jose, Gumaro Chi Referring Unavailable Jose, Gumaro Chi Primary Care Unavailable Mollison, Vikash Attending Unavailable Gumaro Garcia Chi Referring Unavailable Allergies Allergy Classification Reported Allergen(s) Allergy Type Date of Onset Reaction(s) Facility (8 sources) Acetaminophen Drug Allergy 04-04-19 unknown [facility] (8 sources) Aspirin Drug Allergy 04-04-19 [facility] (8 sources) Caffeine Drug Allergy 04-04-19 [facility] (8 sources) methylPREDNISolone Drug Allergy 04-04-19 [facility] (8 sources) Nortriptyline Drug Allergy 04-04-19 [facility] (2 sources) cloNIDine Drug Allergy 07-23-19 [facility] (2 sources) LORazepam Drug Allergy 07-23-19 [facility] (1 source) Acetaminophen Drug Allergy 07-23-19 [facility] (1 source) Aspirin Drug Allergy 07-23-19 [facility] (1 source) Caffeine Drug Allergy 07-23-19 [facility] (1 source) cloNIDine Drug Allergy 07-23-19 [facility] (1 source) LORazepam Drug Allergy 07-23-19 [facility] (1 source) methylPREDNISolone Drug Allergy 07-23-19 [facility] (1 source) Nortriptyline Drug Allergy 07-23-19 [facility] Medications Current Medications Medication Drug Class(es) Dates Sig (Normalized) Sig (Original) benzonatate 200 mg oral capsule (2 sources) Non-narcotic Antitussive Start: 02-14-2024 take 1 capsule by mouth three times daily as needed for cough Benzonatate 200 mg capsule Active 200 mg PO THREE TIMES A DAY as needed for cough 20 February 14, 2024 1:00am busPIRone hydrochloride 30 mg oral tablet (10 sources) Start: 10-03-2023 take 1 tablet by mouth twice daily Buspirone 30 mg tablet Active 30 mg PO TWICE A DAY October 03, 2023 12:00am Start: 01-01-2019 End: 11-10-2021 take 1 tablet by mouth once daily Buspirone 30 mg tablet Discontinued 30 mg PO DAILY 180 0 January 01, 2019 12:00am November 10, 2021 1:25pm fexofenadine hydrochloride 180 mg oral tablet (2 sources) Histamine-1 Receptor Antagonist Start: 02-14-2024 take 1 tablet by mouth once daily Fexofenadine 180 mg tablet Active 180 mg PO daily 30 0 February 14, 2024 1:00am levothyroxine sodium 0.125 mg oral tablet (10 sources) l-Thyroxine Start: 10-03-2023 take 1 tablet by mouth once daily Levothyroxine 125 mcg tablet Active 125 ug PO daily October 03, 2023 12:00am Start: 01-01-2019 End: 11-10-2021 take 1 tablet by mouth once daily Levothyroxine 137 mcg tablet Discontinued 137 ug PO DAILY 30 January 01, 2019 12:00am November 10, 2021 1:25pm Multivitamin tablet (2 sources) Start: 10-03-2023 Multivitamin t ablet Active 1 {tbl} PO DAILY October 03, 2023 12:00am Completed/Discontinued Medications Medication Drug Class(es) Dates Sig (Normalized) Sig (Original) amoxicillin 875 mg / clavulanate 125 mg oral tablet (8 sources) Penicillin-class Antibacterial Start: 04-04-2020 End: 04-14-2020 Amoxicillin-Pot Clavulanate (Augmentin) 875-125 mg tablet Discontinued 1 {tbl} PO Q12H 20 10 0 April 04, 2020 1:00am April 13, 2020 1:00am April 14, 2020 1:03am Acute sinusitis, unspecified calcium carbonate 1250 mg oral tablet (8 sources) Start: 01-01-2019 End: 11-10-2021 take 1 tablet by mouth once daily Calcium Carbonate (Calcium 500) 500 mg calcium (1,250 mg) tablet Discontinued 500 mg PO DAILY January 01, 2019 12:00am November 10, 2021 1:25pm doxycycline hyclate 100 mg oral capsule (2 sources) Tetracycline-class Drug Start: 07-22-2024 End: 07-29-2024 take 1 capsule by mouth twice daily Doxycycline Hyclate 100 mg capsule Discontinued 100 mg PO TWICE A DAY 14 7 0 July 22, 2024 12:00am July 28, 2024 12:00am July 29, 2024 12:06am 84 hr estradiol 0.37216 mg/hr / norethindrone acetate 0.86501 mg/hr transdermal system (8 sources) Estrogen Start: 10-17-2019 End: 10-31-2019 Estradiol-Norethin drone Acet (Combipatch) 0.05-0.14 mg/24 hr patch semiweekly Discontinued 1 NMA TD TWICE A WEEK 10 16October 17, 2019 12:00am October 31, 2019 12:42pm apply 1 patch every 3 days alternating with 1 patch every 4 days Start: 10-17-2019 End: 10-31-2019 Estradiol-Norethindrone Acet (Combipatch) 0.05-0.14 mg/24 hr patch semiweekly Discontinued 1 PATCH TD TWICE A WEEK October 17, 2019 12:00am October 31, 2019 12:42pm apply 1 patch every 3 days alternating with 1 patch every 4 days predniSONE 20 mg oral tablet (2 sources) Start: 07-22-2024 End: 07-27-2024 take 2 tablets by mouth once daily Prednisone 20 mg tablet Discontinued 40 mg PO daily 10 5 0 July 22, 2024 12:00am July 26, 2024 12:00am July 27, 2024 12:08am Problems Active Problems Problem Classification Problem Date Documented Da te Episodic/Chronic Immunizations and screening for infectious disease (3 sources) Contact with and (suspected) exposure to other viral communicable diseases; Translations: [Contact with or suspected exposure to other viral communicable disease] Episodic Malaise and fatigue (1 source) Other fatigue; Translations: [Other fatigue] Onset: 09-20-2024 Episodic Other screening for suspected conditions (not mental disorders or infectious disease) (1 source) Encounter for screening mammogram for malignant neoplasm of breast; Translations: [Encounter for screening mammogram for malignant neoplasm of breast] Onset: 09-19-2024 Episodic Other upper respiratory infections (7 sources) Acute sinusitis; Translations: [Acute sinusitis, unspecified] 07-22-2024 Episodic Screening and history of mental health and substance abuse codes (1 source) Personal history of nicotine dependence; Translations: [Personal history of nicotine dependence] Onset: 09-19-2024 Episodic Superficial injury; contusion (3 sources) Contusion of rib; Translations: [Contusion of right front wall of thorax, initial encounter] Episodic Thyroid disorders (1 source) Hypothyroidism, unspecified; Translations: [Hypothyroidism, unspecified] Onset: 05-18-2025 Chronic Viral infection (8 sources) Disease caused by 2019-nCoV; Translations: [COVID-19] 11-10-2021 Episodic Past or Other Problems Problem Classification Problem Date Documented Da te Episodic/Chronic Other non-traumatic joint disorders (3 sources) Pain in left shoulder; Translations: [Left shoulder pain] Onset: 02-13-2024 10-03-2023 Episodic Residual codes; unclassified (1 source) Chills (without fever); Translations: [Chills (without fever)] Onset: 02-15-2024 Episodic Unclassified (5 sources) Uterine ablation 11-10-2021 Comment on above: 10 years Results Test Name Value Interpretation Reference Range Facility Absolute lymphocyte countOrd ered By: Gumaro Garcia on 09-17-2024 Lymphocytes Auto (Unsp spec) [#/Vol] 1.73 10*3/uL 0.83-4.51 [facility] Absolute neutrophil countOrd ered By: Gumaro Garcia on 09-17-2024 Neutrophils (Bld) [#/Vol] 2.6 10*3/uL 2.0-7.7 [facility] Anion gap in Serum or Plasma Ordered By: Gumaro Garcia on 09-17-2024 Anion gap [Moles/Vol] 10 mmol/L 5-15 [facility] BUN/creatinine ratioOrdered By: Gumaro Garcia on 09-17-2024 Urea nitrogen/Creatinine [Mass ratio] 40.0 mg/mg High 10-20 [facility] Basophil percentageOrdered B y: Gumaro Garcia on 09-17-2024 Basophils/100 WBC (Bld) 1.2 % High 0-1 [facility] Bilirubin, totalOrdered By: Gumaro Garcia on 09-17-2024 Bilirubin [Mass/Vol] 0.42 mg/dL 0.00-1.30 [facility] Blood platelets count (numbe r/volume)Ordered By: Gumaro Garcia on 09-17-2024 Platelets (Bld) [#/Vol] 164 10*3/uL 150-450 [facility] CBC W/Diff, Automatedon 09-04 PLT EST A Normal ADEQ [facility] Comment on above: Performed By: #### L 100.0100, L500.4050, L501.9520 #### [facility] [address] [place], [address] ATYPICAL LYMPH 2+ Normal [facility] Comment on above: Performed By: #### L 100.0100, L500.4050, L501.9520 #### [facility] [address] [place], [address] Carbon dioxide, total [Moles /volume] in Central venous bloodOrdered By: Gumaro Garcia on 09-17-2024 CO2 [Moles/Vol] 25.6 mmol/L 21.0-32.0 [facility] Chloride assayOrdered By: Stef Garcia on 09-17-2024 Chloride [Moles/Vol] 105 mmol/L 98-108 [facility] Comprehensive Metabolic Prof ilon 09-17-2024 Albumin [Mass/Vol] 4.4 g/dL Normal 3.4-4.8 [facility] Comment on above: Performed By: #### L 100.0100, L500.4050, [id number] #### [facility] [address] [place], [address] Albumin/Globulin [Mass ratio] 1.7 {ratio} Normal 0.9-2.4 [facility] Comment on above: Performed By: #### L 100.0100, L500.4050, L501.9520 #### [facility] [address] [place], [address] ALK PHOS 61 U/L Normal 35-104 [facility] Comment on above: Performed By: #### L 100.0100, L500.4050, [id number] #### [facility] [address] [place], [address] ALT [Catalytic activity/Vol] 14 U/L Normal <=34 [facility] Comment on above: Performed By: #### L 100.0100, L500.4050, [id number] #### [facility] [address] [place], [address] AST [Catalytic activity/Vol] 21 U/L Normal <=31 [facility] Comment on above: Performed By: #### L 100.0100, L500.4050, [id number] #### [facility] [address] [place], [address] Bilirubin [Mass/Vol] 0.42 mg/dL Normal 0.00-1.30 [facility] Comment on above: Performed By: #### L 100.0100, L500.4050, [id number] #### [facility] [address] [place], [address] BUN/CRE 40.0 RATIO High 10-20 [facility] Comment on above: Performed By: #### L 100.0100, L500.4050, [id number] #### [facility] [address] [place], [address] Calcium [Mass/Vol] 9.2 mg/dL Normal 7.6-11.0 [facility] Comment on above: Performed By: #### L 100.0100, L500.4050, [id number] #### [facility] [address] [place], [address] Chloride [Moles/Vol] 105 mmol/L Normal 98-108 [facility] Comment on above: Performed By: #### L 100.0100, L500.4050, [id number] #### [facility] [address] [place], [address] CO2 [Moles/Vol] 25.6 mmol/L Normal 21.0-32.0 [facility] Comment on above: Performed By: #### L 100.0100, L500.4050, [id number] #### [facility] [address] [place], [address] Creatinine [Mass/Vol] 0.62 mg/dL Low 0.70-1.20 [facility] Comment on above: Performed By: #### L 100.0100, L500.4050, [id number] #### [facility] [address] [place], [address] GAP 10 Normal 5-15 [facility] Comment on above: Performed By: #### L 100.0100, L500.4050, [id number] #### [facility] [address] [place], [address] GFR/1.73 sq M.predicted among non-blacks MDRD (S/P/Bld) [Vol rate/Area] 101 mL/min/{1.73_m2} Normal >60 [facility] Comment on above: Result Comment: mL/m in/1.73m2 CKD-EPI Creatinine Equation (2020) Performed By: #### L 100.0100, L500.4050, [id number] #### [facility] [address] [place], [address] Globulin (S) [Mass/Vol] 2.6 g/dL Normal 2.2-4.2 [facility] Comment on above: Performed By: #### L 100.0100, L500.4050, [id number] #### [facility] [address] [place], [address] Glucose [Mass/Vol] 93 mg/dL Normal 70-99 [facility] Comment on above: Performed By: #### L 100.0100, L500.4050, [id number] #### [facility] [address] [place], [address] Potassium [Moles/Vol] 4.3 mmol/L Normal 3.3-5.1 [facility] Comment on above: Performed By: #### L 100.0100, L500.4050, L501.9520 #### [facility] [address] [place], [address] Sodium [Moles/Vol] 140 mmol/L Normal 133-145 [facility] Comment on above: Performed By: #### L 100.0100, L500.4050, [id number] #### [facility] [address] [place], [address] T PROT 7.0 g/dL Normal 5.9-8.4 [facility] Comment on above: Performed By: #### L 100.0100, L500.4050, [id number] #### [facility] [address] [place], [address] Urea nitrogen [Mass/Vol] 25 mg/dL High 4-19 [facility] Comment on above: Performed By: #### L 100.0100, L500.4050, [id number] #### [facility] [address] [place], [address] Eosinophil %Ordered By: Gumaro Garcia on 09-17-2024 Eosinophils/100 WBC (Bld) 4.2 % 0-5 [facility] Erythrocyte distribution wid th ratioOrdered By: Gumaro Garcia 09-17-2024 Erythrocyte distribution width (RBC) [Ratio] 13.3 % 11.6-14.6 [facility] Glomerular filtration rate ( GFR) estimation/1.73 sq m using serum, plasma, or whole bOrdered By: Gumaro Garcia on 09-17-2024 GFR/1.73 sq M.predicted among non-blacks MDRD (S/P/Bld) [Vol rate/Area] 101 mL/min/{1.73_m2} >60 [facility] Comment on above: mL/min/1.73m2 CKD-EP I Creatinine Equation (2020) Hematocrit Auto (Bld) [Volum e fraction]Ordered By: Gumaro Garcia on 09-17-2024 Hematocrit (Bld) [Volume fraction] 39.4 % 37-47 [facility] Hemoglobin measurementOrdere d By: Gumaro Garcia on 09-17-2024 Hemoglobin (Bld) [Mass/Vol] 12.9 g/dL 12.0-15.0 [facility] Immature granulocyte percent ageOrdered By: Gumaro Garcia on 09-17-2024 Immature granulocytes/100 WBC (Bld) 0.200 % 0.0-0.9 [facility] Comment on above: IG% - Immature Granu locytes (promyelocytes, myelocytes and metamyelocytes) > 1% indicates that a LEFT SHIFT is Present. Laboratory - Chemistry and C hemistry - challengeOrdered By: Gumaro Garcia on 09-17-2024 AST [Catalytic activity/Vol] 21 U/L <32 [facility] Lymphocyte %Ordered By: Gumaro Garcia 09-17-2024 Lymphocytes/100 WBC (Bld) 34.3 % 19-41 [facility] MCV (mean corpuscular volume ) determinationOrdered By: Gumaro Garcia on 09-17-2024 MCV (RBC) [Entitic vol] 93.1 fL 81-99 [facility] Mean corpuscular hemoglobin (MCH) determinationOrdered By: Gumaro Garcia 09-17-2024 MCH (RBC) [Entitic mass] 30.5 pg 27.0-32.0 [facility] Mean corpuscular hemoglobin concentration (MCHC) determinationOrdered By: Gumaro Garcia 09-17-2024 MCHC (RBC) [Mass/Vol] 32.7 g/dL 32-36 [facility] Mean platelet volume determi nationOrdered By: Gumaro Garcia 09-17-2024 Platelet mean volume (Bld) [Entitic vol] 11.9 fL 6.2-12.0 [facility] Monocyte percentageOrdered B y: Gumaro Garcia on 09-17-2024 Monocytes/100 WBC (Bld) 8.7 % 0-10 [facility] Neutrophil %Ordered By: Gumaro Garcia 09-17-2024 Neutrophils/100 WBC (Bld) 51.4 % 47-70 [facility] Platelet estimateOrdered By: Gumaro Garcia 09-17-2024 Platelets LM Ql (Bld) A ADEQ [facility] Potassium measurement (mass/ volume)Ordered By: Gumaro Garcia 09-17-2024 Potassium (Unsp spec) [Mass/Vol] 4.3 mmol/L 3.3-5.1 [facility] RBC Auto (Bld) [#/Vol]Ordere d By: Gumaro Garcia on 09-17-2024 RBC (Bld) [#/Vol] 4.23 10*6/uL 4.2-5.4 [facility] RDWOrdered By: Gumaro Garcia on 09-17-2024 RDW 46.0 fl High 35.1-43.9 [facility] Serum creatinine measurement (mass/volume)Ordered By: Gumaro Garcia 09-17-2024 Creatinine [Mass/Vol] 0.62 mg/dL Low 0.70-1.20 [facility] Serum globulin measurementOr dered By: Gumaro Garcia 09-17-2024 Globulin (S) [Mass/Vol] 2.6 g/dL 2.2-4.2 [facility] Serum glucose measurement (m ass/volume)Ordered By: Gumaro Garcia 09-17-2024 Glucose [Mass/Vol] 93 mg/dL 70-99 [facility] Serum or plasma alanine cao otransferase (ALT) measurementOrdered By: Gumaro Garcia 09-17-2024 ALT [Catalytic activity/Vol] 14 U/L <35 [facility] Serum or plasma albumin tejal urement (mass/volume)Ordered By: Gumaro Garcia 09-17-2024 Albumin [Mass/Vol] 4.4 g/dL 3.4-4.8 [facility] Serum or plasma albumin/glob ulin mass ratioOrdered By: Gumaro Garcia 09-17-2024 Albumin/Globulin [Mass ratio] 1.7 {ratio} 0.9-2.4 [facility] Serum or plasma alkaline ashly sphatase measurementOrdered By: Gumaro Garcia 09-17-2024 ALP [Catalytic activity/Vol] 61 U/L 35-104 [facility] Serum or plasma calcium tejal urement (mass/volume)Ordered By: Gumaro Garcia 09-17-2024 Calcium [Mass/Vol] 9.2 mg/dL 7.6-11.0 [facility] Serum or plasma urea nitroge n measurement (mass/volume)Ordered By: Gumaro Garcia 09-17-2024 Urea nitrogen [Mass/Vol] 25 mg/dL High 4-19 [facility] Sodium levelOrdered By: Gumaro Garcia on 09-17-2024 Sodium [Moles/Vol] 140 mmol/L 133-145 [facility] TSH DL <= 0.005 mIU/L QnOrde red By: Gumaro Garcia on 09-17-2024 TSH Qn 0.932 uIU/mL 0.300-4.200 [facility] Thyroid Stim Hormone (TSH)on 09-17-2024 TSH 0.932 uIU/mL Normal 0.300-4.200 [facility] Comment on above: Performed By: #### L 100.0100, L500.4050, L501.9520 #### [facility] [address] [place], [place], [address] Total proteinOrdered By: Gumaro Garcia on 09-17-2024 Protein [Mass/Vol] 7.0 g/dL 5.9-8.4 [facility] White blood cell (WBC) count Ordered By: Gumaro Garcia on 09-17-2024 WBC (Bld) [#/Vol] 5.1 10*3/uL 4.4-11.0 [facility] Urgent Care Visit Reporton 0 07-22-2024 Urgent Care Visit Report [facility] [address], [address] [place], [place] [address] OFFICE VISIT Date of Service: 07/22/24 MR#: [id number] Acct: [id number] Name: TANJA BUSH Rep #: [id number] : 1960 Provider: ROLANDO rodriguez Age/Sex: 64/F Location: [facility] Status: Signed Intake Vital Signs 02/14/24 16:00 07/22/24 10:34 Height 5 ft 7.5 in Weight: 140 lb BMI 21.6 BP 122/78 H 134/78 H Blood Pressure Location Lt brachial Lt brachial Position Sitting Sitting Respiration 14 15 Pulse 86 79 Pulse Source NIBP NIBP Temp 98.1 F 98.0 F Temp Source Oral Oral Pulse Oximetry (%) 98 Oxygen Delivery Method room air Intake Visit Reasons: DEEP COUGH Chief Complaint: cough, congestion Manager Community Relations Required: No Is patient in pain?: No Allergies acetaminophen (From Excedrin Extra Strength) Adverse Reaction (Unknown, Verified 07/22/24 10:35) unknown aspirin (From Excedrin Extra Strength) Adverse Reaction (Unknown, Verified 07/22/24 10:35) unknown caffeine (From Excedrin Extra Strength) Adverse Reaction (Unknown, Verified 07/22/24 10:35) unknown methylprednisolone Adverse Reaction (Unknown, Verified 07/22/24 10:35) unknown nortriptyline Adverse Reaction (Unknown, Verified 07/22/24 10:35) unknown clonidine Adverse Reaction (Verified 07/22/24 10:35) Hallucinations lorazepam Adverse Reaction (Verified 07/22/24 10:35) Hallucinations Is last menstrual period known: No Post menopausal: Yes Patient : No Have you fallen in the past year?: No Nurse's Note: cough, congestion x 2 weeks worsening. cannot sleep d/t cough. large amounts of mucus via cough and runny nose. denies fever. denies lung dz PFSH Medical History Left shoulder pain Skin cancer Constantin's disease COVID-19 Thyroid disease Surgical History History of endometrial ablation Previous section History of breast surgery History of thyroid surgery Family History Brother Cancer Sister Cancer Mother Heart disease Father Heart disease Social History adopted: No household members: spouse and family housing: apartment number of children: 2 current occupational status: employed current occupation: [employer] current occupational exposures/hazards: No pets and animals: Yes sexually active: Yes Smoking Status: Former smoker alcohol intake: current alcohol intake frequency: holidays/special occasions only Alcohol type: wine seatbelt use: always do you feel safe at home: Yes additional social history: [place] Female Reproductive History Menstrual Date of menopause: 04/07/18 (approx 5 years ago. ) HPI HPI Chief Complaint: cough, congestion Details: TANJA BUSH, is a 64 F who presents to the office today for concerns regarding cough, chest congestion, and sinus congestion for 2 weeks. She is a currently a non-smoker, but does have a history of smoking without seasonal allergies. She denies fever or chills. She states intermittent body aches. ROS Const Constitutional: Positive for body ache; No chills, fatigue, fever(s), headache(s) or change in appetite Eyes Eyes: No blurry vision, change in vision, double vision, irritation, discharge, vision loss, dry eyes, bulging eyes, floaters, visual disturbances, eye pain, Light sensitivity, spots in vision, tunnel vision or other ENT ENT: Positive for abnormal hearing (low), nasal congestion, sinus pressure, sinus pain and nasal discharge (thick, white); No ear or mastoid pain, ear discharge, ear pressure, tinnitus, dizziness/vertigo, nosebleed/epistaxis , nose pain, post nasal drip, headache(s), facial pain, dental pain, difficulty swallowing, bad breath, hoarseness, lip swelling, mouth lesions, mouth pain, neck pain, sore throat, tongue swelling or throat swelling Resp Respiratory: Positive for cough and chest congestion; No change in phlegm color, hemoptysis, pain on inspiration, shortness of breath, pain with cough, stridor or wheezing Cardio Cardiology: No chest pain at rest, chest pain with exertion, shortness of breath, dyspnea on exertion or lightheadedness Gastro GI: Positive for constipation; No abdominal pain, change in bowel habits, diarrhea, difficulty swallowing, nausea/dyspepsia or vomiting Genitourinary-Femal e: No burning urination or urinary frequency Musc Musculoskeletal: No joint pain or neck pain Skin Skin: No rash Neuro Neurology: Positive for abnormal hearing (low); No headache(s) or visual disturbances Psych Psychiatric: No change in appetite Endo Endocrine: No fatigue Aller/Imm Allergy/Immunologic : No lip swelling, throat swelling (more content not included)... Normal [facility] Urgent Care Visit Reporton 1 04-16-2023 Urgent Care Visit Report [facility] [address], [address] [place] [address] OFFICE VISIT Date of Service: 02/14/24 MR#: [id number] Acct: [id number] Name: TANJA BUSH Rep #: [id number] : 1960 Provider: ANABELLA Iqbal Age/Sex: 63/F Location: [facility] Status: Signed Intake Vital Signs 10/26/23 08:56 02/14/24 16:00 Height 5 ft 7 in 5 ft 7.5 in Weight: 140 lb BMI 21.6 BP 122/78 H Blood Pressure Location Lt brachial Position Sitting Respiration 14 Pulse 86 Pulse Source NIBP Temp 98.1 F Temp Source Oral Intake Visit Reasons: cough Chief Complaint: cough, chest and sinus congestion Manager Community Relations Required: No Is patient in pain?: No Allergies acetaminophen (From Excedrin Extra Strength) Adverse Reaction (Unknown, Verified 02/14/24 16:01) unknown aspirin (From Excedrin Extra Strength) Adverse Reaction (Unknown, Verified 02/14/24 16:01) unknown caffeine (From Excedrin Extra Strength) Adverse Reaction (Unknown, Verified 02/14/24 16:01) unknown methylprednisolone Adverse Reaction (Unknown, Verified 02/14/24 16:01) unknown nortriptyline Adverse Reaction (Unknown, Verified 02/14/24 16:01) unknown clonidine Adverse Reaction (Verified 02/14/24 16:01) Hallucinations lorazepam Adverse Reaction (Verified 02/14/24 16:01) Hallucinations Medications ???Medication ???Instructions ???Recorded ???Confirmed ???Type buspirone 30 mg tablet 30 mg PO BID 10/03/23 02/14/24 History levothyroxine 125 mcg tablet 125 mcg PO QDAY 10/03/23 02/14/24 History multivitamin 1 tab PO DAILY 10/03/23 02/14/24 History benzonatate 200 mg capsule 200 mg PO TID PRN cough #20 caps 02/14/24 02/14/24 Rx fexofenadine 180 mg tablet 180 mg PO QDAY #30 tabs 02/14/24 02/14/24 Rx Is last menstrual period known: No Post menopausal: Yes Patient : No Have you fallen in the past year?: No Nurse's Note: patient here for sinus and chest congestion and cough for 5 days. She states that had upper respiratory infection. [facility] Medical History Left shoulder pain Skin cancer Birmingham's disease COVID-19 Thyroid disease Surgical History History of endometrial ablation Previous section History of breast surgery History of thyroid surgery Family History Brother Cancer Sister Cancer Mother Heart disease Father Heart disease Social History adopted: No household members: spouse and family housing: apartment number of children: 2 current occupational status: employed current occupation: [employer] current occupational exposures/hazards: No pets and animals: Yes sexually active: Yes Smoking Status: Former smoker alcohol intake: current alcohol intake frequency: holidays/special occasions only Alcohol type: wine seatbelt use: always do you feel safe at home: Yes additional social history: [employer] Female Reproductive History Menstrual Date of menopause: 04/07/18 (approx 5 years ago. ) HPI HPI Chief Complaint: cough, chest and sinus congestion Details: TANJA BUSH, is a 63 F who presents to the office today for 5 day h/o cough w/ chest and sinus congestion. No fever/ chills. No cp/ sob/ reid. Ex-smoker (quit in 03/2023). , grandson w/ si milar c/o. OTC Mucinex DM and Mucinex cough drops both of some assist. Declining all POC screening upon offering. No other associated symptoms and no other +/- factors. ROS Const Constitutional: No other (As above) Exam Const General: cooperative, healthy appearing and no acute distress Orientation: alert, awake and oriented x3 HENMT Head: normal to inspection Ears: hearing grossly normal bilaterally, external ears normal, TM's normal bilaterally and EAC's normal Nose: external nose normal, nares normal, septum normal and clear nasal discharge Face and sinus: normal facial exam, sinuses nontender and face symmetric Mouth: oral mucosae normal, lip normal, tongue normal and oropharynx normal Throat: posterior oropharynx normal, tonsils normal, uvula midline and no postnasal drainage Eyes General: appearance normal, both eyes and all related structures Neck Neck: normal visual inspection, full ROM, no lymphadenopathy, no meningeal signs and supple Neck mass: No Thyroid: thyroid normal Lymphatic: no lymphadenopathy noted Chest Chest palpation inspection: normal inspection of the chest Resp Effort Inspection: normal respiratory effort, able to speak in complete sentences and cough Quality of cough: wet (nonproductive in office today) Auscultation: Bilateral: Clear to Auscultation Cardio Palpation: normal PMI Rate: Regular Rhythm: reg (more content not included)... Normal [facility] Orthopedic Visit Reporton Orthopedic Visit Report [facility] [address] [place] [address] [address] [place] [address] OFFICE VISIT Date of Service: 12/19/23 MR#: [id number] Acct: [id number] Name: TANJA BUSH Rep #: [id number] : 1960 Provider: Dr. Vikash sanchez MD Age/Sex: 63/F Location: [facility] Status: Signed Intake Vital Signs 10/26/23 08:56 Height 5 ft 7 in Weight: 140 lb 6 oz BMI 21.9 BP 131/73 H Intake Visit Reasons: LEFT SHOULDER Accompanied by: Self Is patient in pain?: Yes Pain scale (1-10): 4 Allergies acetaminophen (From Excedrin Extra Strength) Adverse Reaction (Unknown, Verified 12/19/23 08:29) unknown aspirin (From Excedrin Extra Strength) Adverse Reaction (Unknown, Verified 12/19/23 08:29) unknown caffeine (From Excedrin Extra Strength) Adverse Reaction (Unknown, Verified 12/19/23 08:29) unknown methylprednisolone Adverse Reaction (Unknown, Verified 12/19/23 08:29) unknown nortriptyline Adverse Reaction (Unknown, Verified 12/19/23 08:29) unknown clonidine Adverse Reaction (Verified 12/19/23 08:29) Hallucinations lorazepam Adverse Reaction (Verified 12/19/23 08:29) Hallucinations Medications ???Medication ???Instructions ???Recorded ???Confirmed ???Type buspirone 30 mg tablet 30 mg PO BID 10/03/23 12/19/23 History levothyroxine 125 mcg tablet 125 mcg PO QDAY 10/03/23 12/19/23 History multivitamin 1 tab PO DAILY 10/03/23 12/19/23 History PFSH Medical History Left shoulder pain Skin cancer Constantin's disease COVID-19 Thyroid disease Surgical History History of endometrial ablation Previous section History of breast surgery History of thyroid surgery Family History Brother Cancer Sister Cancer Mother Heart disease Father Heart disease Social History adopted: No household members: spouse and family housing: apartment number of children: 2 current occupational status: employed current occupation: [employer] current occupational exposures/hazards: No pets and animals: Yes sexually active: Yes Smoking Status: Former smoker alcohol intake: current alcohol intake frequency: holidays/special occasions only Alcohol type: wine seatbelt use: always do you feel safe at home: Yes additional social history: [employer] BOWERS LEFT SHOULDER Details: This documentation accurately reflects the service provided and the decisions made by me, Dr. Vikash Redmond MD 12/19/23 0826. Part of today???s visit was documented by [ ], acting as scribe. TANJA BUSH is a 63 year old F here today for 2 month FU left shoulder pain, cortisone injection and formal PT. did help somewhat. worse with work. thinks it may be more the neck. posterior mid line C spine pain as well. tightness. cortisone injection did help with some 'burning sensation'. coming back now. did 3 weeks of formal PT> Coding Level of Care Code Off vis,est,level 3 Diagnoses Left shoulder pain M25.512 Assessment and Plan Assessment and Plan (1) Left shoulder pain: Status: Acute Plan: TANJA BUSH is a 63 year old F here today for 2 month FU left shoulder pain, cortisone injection and formal PT. patient did feel some relief with the cortisone injection I think some of the pain could be coming from the shoulder therefore I will go ahead and order an MRI as the pain is persisting. Some of the pain is also moving up into the cervical spine patient is concerned with that and also the pain does get actually better when the patient rests the hand above the shoulder height that is potentially a sign of cervical radiculopathy so I will go ahead and asked the patient to see Dr. Villafuerte in regards to the cervical spine. Follow-up with myself after the left shoulder MRI. The patient understands no further questions or concerns. Orders: Orders Upper Ext Joint Only(Routine) Today M25.512 - Pain in left shoulder Ortho Exam General General: Yes no acute distress Neurologic: Yes alert and Yes oriented x3 Psychologic: Yes reasonable and appropriate Left Shoulder Skin/Wound: Yes CDI, No ecchymosis, No erythema and No swelling Testing: No Hawkin's, No Neer's, No Speed's, No TTP Biceps, No TTP AC Joint, Yes AROM-Forward Elevation 0-180, Yes AROM-External Rotation at side 0-60 and No empty can SHOULDER: normal motor and sens to axillary N, MRU and AIN/PIN. Hand warm well perfused normal radial pulse strength in FE and ER 5/5 crepitus with ROM testing 12/19/23 0837 Date Vikash Redmond MD Cosigner Signature: Date (if applica (more content not included)... Normal [facility] Re-Evaluation - PT (1)on Re-Evaluation - PT (1) [facility] Physical Therapy [facility] [address] [place] [address] [address] [place] [address] / REEVALUATION / MEDICARE RECERTIFICATION PHYSICAL THERAPY MR#: [id number] Acct: [id number] Name: TANJA BUSH Rep #: [id number] : 1960 63 From: Nghia Quintana DPT, OCS, CSCS Referring Dr.: Dr. Vikash Redmond MD Status:REG RCR Insurance: [employer] SELF PAY INSURANCE Re-Evaluation Intro: Dr. Vikash Redmond MD, It has been my pleasure to treat TANJA BUSH over the last 7 visits for L shoulder pain. Please see the progress note below for an update on the physical therapy plan of care! Subjective Subjective: Still hurts pretty good after work. Seeing doctor after this visit today. Seems like is better than 3 weeks ago but flares up at work with constant movmemnet at work. Takes ibuprofen before bed and wakes up well. Lightning will shoot down arms at times after work. Injection was very helpful but pain is returning. Pain over weekend was high 9/10 from work at work. Relaxing at home can ease the pain. Activities at home are getting done but has to work through pain, liftin laundry baskets can be painful. Groceries are still painful getting out of car. Sleep is OK in elevated HOB is OK and takes ibuprofen. Wakes up with neck pain if sleeps flat. Home exercises of cervical retraction and extension are helpful. Objective Objective/Function: cervical AROm ext 40 and rotation R 45 and L 55 to start , limite dby pain b/w scapula. L shoulder AROM WFL adn without pain, in fact sometimes elevates it to relieve pain at work. strength in shoulders is 4-/5 without pain with flexion or abduction or empty can today. er/IR weak at 4- but not painful. + cervical compression test, - HK and - neer and - ext rotation lag test. Clinically is presenting with very few positive Rc or shoulder tests but many neck dysfunciton possibly derangement in nature. this should be considered in differential diagnosis. Plan Plan Plan: Pt to doctor , see note. If no other interventions recommended then plan to continue 2x/week for 3 weeks for lower cervical ext and mobs, manual traction and cervical postural strength Balance/Gait/Functi onal tests Balance/Special Test Scores Quick DASH Score: 43.1800 Goals Goals Goal 1:: Pain in shoulder neck 1/109 at worst and 90% better Goal Time Frame: 4-6 Weeks Goal Progress: slow Goal 2:: Patient work without increased pain in shoulder or neck Goal Time Frame: 4-6 Weeks Goal Progress: Not Progressing Goal 3:: I appropriate HEp to minimize future problems Goal Time Frame: 4-6 Weeks Goal Progress: Progressing Goal 4:: sit in proper head sagittal posture without cues Goal Time Frame: 4-6 Weeks Goal Progress: Progressing Goal 5:: qucik dash score 15 or better Goal Time Frame: 4-6 Weeks Goal Progress: Not Progressing Anticipated Interventions Anticipated Interventions Patient/Client Instruction: Educate patient on: Condition and Plan of Care For the Purpose of:: To decrease pain, To increase ROM, To improve nutrient delivery to tissue, To improve muscle performance and motor function and To increase tolerance to activity/condition/ position Therapeutic Exercise to Include: Strength training, Body mechanics, Postural training, Passive ROM and Active ROM For the Purpose of:: To decrease pain, To increase ROM, To improve nutrient delivery to tissue, To improve muscle performance and motor function and To increase tolerance to activity/condition/ position Manual Therapy Techniques to Include: Mobilization, Passive ROM and Soft tissue mobilization For the Purpose of:: To decrease pain, To increase ROM, To improve nutrient delivery to tissue and To improve muscle performance and motor function TENS: Yes Thermo therapy (hot pack): Yes For the Purpose of:: To decrease pain, To increase ROM and To improve nutrient delivery to tissue Re-Evaluation Ending Re-evaluation ending: Please do not hesitate to contact me at [phone] by phone or if you have questions or concerns regarding this new plan of care! Sincerely, Nghia Quintana DPT, OCS, CSCS 12/19/23 0824 CC: Dr. Vikash Redmond MD; Dr. Gumaro Garcia MD EBG Signed For Medicare only, by signing this I certify the plan of care. _ Physicians Signature Date Normal [facility] Inital Evaluation (1) - PTon 11-28-2023 Inital Evaluation (1) - PT [facility] Physical Therapy [facility] [address] [place] [address] / REHABILITATION SERVICES INITIAL EVALUATION MR#: [id number] Acct: [id number] Name: TANJA BUSH Rep #: [id number] : 1960 63 From: Nghia Quintana DPT, OCS, CSCS Referring Dr.: Dr. Vikash Redmond MD Status: R EG RCR Insurance: [employer] SELF PAY INSURANCE Patient's Visit Information Visit Information Visit Information: TANJA BUSH is a 63 year old F referred to Physical Therapy by Dr. Vikash Redmond MD with a diagnosis of L shoulder pain. Date of Evaluation: 11/28/23 Physical Therapist: Nghia Quintana, DPT, OCS, CSCS Visit Plan Frequency: 2x /Week Duration: 4-6 Weeks Plan: 2x/week for 3-6 weeks for 1. STM L UT and neck area, manual cervical retraction ROM and PA mobs, can do some gentle traction 2. cervical Pamela ex progression of forces as tolerated ret, ext and postural correction. 3. strenggthening posture, neck and shouders 4. may do MH and TENS if needed to neck IE: Instruct HEP of cervical retraction 10x every two hours and postural correction/POC Subjective Subjective: L shoulder painful and sometimes into neck. Hurts burny after work and feels tense. Points to UT, releases with arm overhead. It started yrs ago mildly but worsening lately Has had a number of x rays that come back normal. Got cortisone shot in shoulder a couple weeks ago. then went on vacation. Injection helped 100% for a week, now starting to come back more, 50% back. After work is worse. 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 40 hrs per week. does not hurt on days off but 3/10. Basic ADLs all getting done, Lifting laundry baskets or grandkids may huirt worse. Hobbies include grandkids or work. Sleep is not inteerrupted but may take ibuprfoen if hurts real bad. No MRI or catscan Neck pops and cracks alot, not much pain, sometimes gets shock down the arm past elbow. Pain L scapular: Pain Intensity (Out of 10): 7 Pain Intensity Range: 0 and 8 Objective Objective: Posture is forward head and elevated protracted scap. Tender to touch L UT area nd pericervical mm UE aROM WFL and without pain strength shoulders elbows and wrists 4- without myotomal sensation WNL gross light touch in UE reflexes 1/3 bi and tri. - empty can,- extrotation lag, - labral tests, - HK and neer on L. to 48 cervical ext 55 with some L pain and rotations 70 without pain. retraction painful and limited and reproduces pain. + L c/s compression test. repeated rprotraction:produc es pain L side of neck and worse ext motion c/s retraction repeated produces pulling pain, NE, centralized tightness. repeated ret/ext PDM and better motion : NE on pain. Balance/Special Test Scores Quick DASH Score: 31.8175 Goals Goal 1:: Pain in shoulder neck 1/109 at worst and 90% better Goal Time Frame: 4-6 Weeks Goal 2:: Patient work without increased pain in shoulder or neck Goal Time Frame: 4-6 Weeks Goal 3:: I appropriate HEp to minimize future problems Goal Time Frame: 4-6 Weeks Goal 4:: sit in proper head sagittal posture without cues Goal Time Frame: 4-6 Weeks Goal 5:: qucik dash score 15 or better Goal Time Frame: 4-6 Weeks Rehabilitation Potential Physical Therapy Diagnosis: neck and shoulder pain limiting comfortable funciton likely cervical in nature Rehabilitation Potential: Good Anticipated Interventions Patient/Client Instruction: Educate patient on: Condition and Plan of Care For the Purpose of:: To decrease pain, To increase ROM, To improve nutrient delivery to tissue, To improve muscle performance and motor function and To increase tolerance to activity/condition/ position Therapeutic Exercise to Include: Strength training, Body mechanics, Postural training, Passive ROM and Active ROM For the Purpose of:: To decrease pain, To increase ROM, To improve nutrient delivery to tissue, To improve muscle performance and motor function and To increase tolerance to activity/co ndition/position Manual Therapy Techniques to Include: Mobilization, Passive ROM and Soft tissue mobilization For the Purpose of:: To decrease pain, To increase ROM, To improve nutrient delivery to tissue and To improve muscle performance and motor function TENS: Yes Thermo therapy (hot pack): Yes For the Purpose of:: To decrease pain, To increase ROM and To improve nutrient delivery to tissue Text: Thank you for the opportunity to evaluate your patient. For Medicare and Medicare HMO plans, please review the plan of care and approve it. It will need to be FAXED BACK to us at [phone] for Medicare purposes. For Medicare only, by signing this I certify the plan of care. Please let me know if there are questions or concerns regarding this plan of care. Physician Signature: __ (more content not included)... 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 Community Relations Required: No Is patient in pain?: No Allergies acetaminophen (From Excedrin Extra Strength) Adverse Reaction (Unknown, Verified 10/26/23 09:09) unknown aspirin (From Excedrin Extra Strength) Adverse Reaction (Unknown, Verified 10/26/23 09:09) unknown caffeine (From Excedrin Extra Strength) Adverse Reaction (Unknown, Verified 10/26/23 09:09) unknown methylprednisolone Adverse Reaction (Unknown, Verified 10/26/23 09:09) unknown nortriptyline Adverse Reaction (Unknown, Verified 10/26/23 09:09) unknown clonidine Adverse Reaction (Verified 10/26/23 09:09) Hallucinations lorazepam Adverse Reaction (Verified 10/26/23 09:09) Hallucinations Medications ???Medication ???Instructions ???Recorded ???Confirmed ???Type buspirone 30 mg tablet 30 mg PO BID 10/03/23 10/26/23 History levothyroxine 125 mcg tablet 125 mcg PO QDAY 10/03/23 10/26/23 History multivitamin 1 tab PO DAILY 10/03/23 10/26/23 History Is last menstrual period known: No Post menopausal: Yes Date of menopause: 04/07/18 (approx 5 years ago. ) Patient : No : No Control Method: menopause [facility] Medical History Left shoulder pain Skin cancer Constantin's disease COVID-19 Thyroid disease Surgical History History of endometrial ablation Previous section History of breast surgery History of thyroid surgery Family History Brother Cancer Sister Cancer Mother Heart disease Father Heart disease Social History adopted: No household members: spouse and family housing: apartment number of children: 2 current occupational status: employed current occupation: [employer] current occupational exposures/hazards: No pets and animals: Yes sexually active: Yes Smoking Status: Former smoker alcohol intake: current alcohol intake frequency: holidays/special occasions only Alcohol type: wine seatbelt use: always do you feel safe at home: Yes additional social history: [place] History 2 Elective abortions Hx Para 2 Spontaneous abortions Hx # Term Pregnancies Ectopic pregnancies Hx # Pregnancies Multiple births # of living children 2 Past Pregnancies Del. Date Name GA/Weeks Outcome Route Bth Weight Gen Labor Lgth Anesthesia Del Locatn Provider FOB Unknown 08/07/91 Yeimy Unknown Fernando- 09/10/1993 HPI Encounter for routine gynecological examination Details: TANJA BUSH is a 63 year old who presents for annual exam. She reports no issues or concerns today. Last PAP: 2019; normal History of abnormal PAP: no Last mammogram: 2023 History of abnormal mammogram: benign breast lump removal; 2009. Colon cancer screening: Cologaurd; 2023; normal. Other preventative health care screenings: Primary Care Doctor: Dr. Garcia. Female Reproductive History Date of menopause: 04/07/18 (approx 5 years ago. ) Menopausal Symptoms: No hot flashes, No night sweats, No weight change, No mood changes, No difficulty concentrating, No sleep problems and No change in libido Menopausal Treatment: No HRT, No Vaginal Estrogen, No Osphena, No OTC treatments and No prescription non-hormonal treatment ROS Const Constitutional: Denies night sweats Eyes Eyes: Denies change in vision ENT ENT: Denies dizziness Cardio Card: Denies chest pain Resp Resp: Denies cough or dyspnea on exertion GI GI: Denies abdominal pain, bloating, change in stool character, constipation or vomiting : Denies hot flashes, nipple discharge, pelvic pain, vaginal discharge, vaginal dryness, vaginal odor or vaginal pruritus Skin Skin/Breast: Denies alopecia, rash, breast mass, breast pain, breast skin changes or nipple discharge Neuro Neuro: Denies dizziness Psych Psych: Denies change in libido or difficulty concentrating Endo Endo: Denies cold intolerance, excessive sweating or heat intolerance Exam Const General: cooperative, healthy appearing, comfortable, no acute distress, well groomed and well hydrated Nutritional Appearance: well nourished Orientation: al (more content not included)... Normal [facility] Orthopedic Visit Reporton Orthopedic Visit Report [facility] [address] [place] [address] OFFICE VISIT Date of Service: 10/03/23 MR#: [id number] Acct: [id number] Name: TANJA BUSH Rep #: [id number] : 1960 Provider: Dr. Vikash sanchez MD Age/Sex: 63/F Location: [facility] Status: Signed with Addenda ADDENDUM by Shelley Nicole on 10/03/23 at 0851 Office Procedure Documentation entered by Shelley Nicole 10/03/23 08:51: Ortho Injections Injections Yes Subacromial Injection Left Is this patient provided medication?: Yes Details: Obtained consent for injection. Under sterile conditions, injected the patients left subacromial shoulder with 2.0mL Kenalog and 4.0mL Bupivacaine. The patient tolerated the injection well without any noted complication. Patient should call our office if redness develops, pain worsens or if they have any concerns. Office Meds Kenalog 40 mg/mL suspension for injection Performing Provider: Vikash Redmond MD Performing Location: [facility] Administered by: Vikash Redmond MD on 10/03/23 08:50 Dose Route Admin Location Dispensed Lot Number Expiration Date NDC Man ufacturer 80 mg intra-articular Left Shoulder 2 mL [id number] 06/05/25 5611-7737-40 [facility] Date cc: * Signed Intake Vital Signs 11/10/21 13:26 10/03/23 08:18 Height 5 ft 7 in 5 ft 7 in Weight: 143 lb 4 oz BMI 22.4 Intake Visit Reasons: LEFT SHOULDER Chief Complaint: Left Shoulder Pain Accompanied by: Self Is patient in pain?: Yes Pain scale (1-10): 1 Allergies acetaminophen (From Excedrin Extra Strength) Adverse Reaction (Unknown, Verified 04/04/20 09:58) unknown aspirin (From Excedrin Extra Strength) Adverse Reaction (Unknown, Verified 04/04/20 09:58) unknown caffeine (From Excedrin Extra Strength) Adverse Reaction (Unknown, Verified 04/04/20 09:58) unknown methylprednisolone Adverse Reaction (Unknown, Verified 04/04/20 09:58) unknown nortriptyline Adverse Reaction (Unknown, Verified 04/04/20 09:58) unknown clonidine Adverse Reaction (Verified 10/03/23 08:21) Hallucinations lorazepam Adverse Reaction (Verified 10/03/23 08:21) Hallucinations Medications ???Medication ???Instructions ???Recorded ???Confirmed ???Type buspirone 30 mg tablet 30 mg PO BID 10/03/23 10/03/23 History levothyroxine 125 mcg tablet 125 mcg PO QDAY 10/03/23 10/03/23 History multivitamin 1 tab PO DAILY 10/03/23 10/03/23 History PFSH Medical History Left shoulder pain Skin cancer Constantin's disease COVID-19 Thyroid disease Surgical History History of endometrial ablation Previous section History of breast surgery History of thyroid surgery Family History Brother Cancer Sister Cancer Mother Heart disease Father Heart disease Social History adopted: No household members: spouse and family housing: apartment number of children: 2 current occupational status: employed current occupation: [employer] current occupational exposures/hazards: No pets and animals: Yes sexually active: Yes Smoking Status: Former smoker alcohol intake: current alcohol intake frequency: holidays/special occasions only Alcohol type: wine seatbelt use: always do you feel safe at home: Yes additional social history: Codey BOWERS LEFT SHOULDER Details: This documentation accurately reflects the service provided and the decisions made by me, Dr. Vikash Redmond MD 10/03/23 0815. Part of today???s visit was documented by [ ], acting as scribe. TANJA BUSH is a 63 year old F here today for left shoulder pain, no injury, had xrays but no answers, 'burning like fire' years, on and off, takes nsaids, worse after work, a bit better with abduction of the arm. RHD. 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 Ortho Exam General General: Yes no acute distress Neurologic: Yes alert and Yes oriented x3 Psychologic: Yes reasonable and appropriate Left Shoulder Skin/Wound: Yes CDI, No ecchymosis, No erythema and No swelling Testing: Yes Hawkin's, No Neer's, No Speed's, No TTP Biceps, No TTP AC Joint, Yes AROM-Forward Elevation 0-180, Yes AROM-External Rotation at side 0-60, Yes empty can, No Odell, No cross arm, No scapular winging and Yes belly press normal SHOULDER: normal motor and sens to axillary N, MRU and AIN/PIN. Hand warm well perfused normal radial pulse strength in FE and ER 5/5 crepitus with ROM testing Supplemental Info X-rays 4 views left shoulder obtained show normal for age radiographs. Very mild early (more content not included)... Normal [facility] Shoulder min 2 Viewson 10-02 Shoulder min 2 Views [facility] [address] [place] [address] Shoulder min 2 Views MR#: [id number] Acct: [id number] Name: TANJA BUSH Rep #: [id number] : 1960 F 63 From: [facility] PCP: Dr. Gumaro Garcia MD Status: DEP AMB Study: Shoulder min 2 Views Date of Exam: 10/03/23 Exam# [id number] Ordering Dr: Vikash Redmond MD -[id number] INDICATION: pain EXAMINATION/TECHNIQ UE: X-RAY - LEFT XR Shoulder Min 2 Views 4 VIEWS COMPARISON: No relevant prior comparison study available FINDINGS: SOFT TISSUES: No soft tissue swelling or gas. No radiopaque foreign body. BONES/JOINTS: No acute fracture or subluxation.. Normal alignment. Preservation of the joint space.. No sclerotic or destructive changes observed. RAD/Shoulder min 2 Views IMPRESSION: Unremarkable examination. Electronically Signed: Best Whipple MD at 16:59 EDT , CC: Dr. Vikash Redmond MD; Dr. 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 Chloride [Moles/Vol] 108 mmol/L 98-107 [facility] Eosinophils/100 WBC (Bld) 2.9 % 0-5 [facility] Glucose [Mass/Vol] 94 mg/dL 74-106 [facility] Neutrophils (Bld) [#/Vol] 2.1 10*3/uL 2.0-7.7 [facility] Neutrophils/100 WBC (Bld) 46.6 % 47-70 [facility] Potassium [Moles/Vol] 3.9 mmol/L 3.5-5.1 [facility] Protein [Mass/Vol] 7.3 g/dL 6.4-8.2 [facility] Sodium [Moles/Vol] 138 mmol/L 136-145 [facility] WBC (Bld) [#/Vol] 4.5 10*3/uL 4.4-11.0 [facility] Blood erythrocytes count (nu mber/volume)Ordered By: Gumaro Garcia on 09-08-2022 RBC (Bld) [#/Vol] 4.33 10*6/uL 4.2-5.4 [facility] Blood hemoglobin measurement (mass/volume)Ordered By: Gumaro Garcia on 09-08-2022 Hemoglobin (Bld) [Mass/Vol] 13.2 g/dL 12.0-15.0 [facility] Blood lymphocytes/100 leukoc ytesOrdered By: Gumaro Garcia on 09-08-2022 Lymphocytes/100 WBC (Bld) 39.8 % 19-41 [facility] Blood monocytes/100 leukocyt esOrdered By: Gumaro Garcia on 09-08-2022 Monocytes/100 WBC (Bld) 9.4 % 0-10 [facility] Blood platelet mean volumeOr dered By: Gumaro Garcia on 09-08-2022 Platelet mean volume (Bld) [Entitic vol] 12.1 fL 6.2-12.0 [facility] Determination of erythrocyte mean corpuscular volume (MCV)Ordered By: Gumaro Garcia on 09-08-2022 MCV (RBC) [Entitic vol] 92.4 fL 81-99 [facility] Hematocrit Auto (Bld) [Volum e fraction]Ordered By: Gumaro Garcia on 09-08-2022 Hematocrit (Bld) [Volume fraction] 40.0 % 37-47 [facility] Laboratory - Chemistry and C hemistry - challengeOrdered By: Gumaro Garcia on 09-08-2022 ALP [Catalytic activity/Vol] 73 U/L 45-117 [facility] ALT [Catalytic activity/Vol] 19 U/L 13-56 [facility] CO2 [Moles/Vol] 26.0 mmol/L 21.0-32.0 [facility] Globulin (S) [Mass/Vol] 3.6 g/dL 2.2-4.2 [facility] Urea nitrogen/Creatinine [Mass ratio] 26.4 mg/mg 10-20 [facility] Laboratory - Hematology and Cell countsOrdered By: Gumaro Garcia on 09-08-2022 Erythrocyte distribution width (RBC) [Entitic vol] 43.5 fL 35.1-43.9 [facility] Erythrocyte distribution width (RBC) [Ratio] 12.8 % 11.6-14.6 [facility] Immature granulocytes/100 WBC (Bld) 0.200 % 0.0-0.9 [facility] Comment on above: IG% - Immature Granu locytes (promyelocytes, myelocytes and metamyelocytes) > 1% indicates that a LEFT SHIFT is Present. MCH (RBC) [Entitic mass] 30.5 pg 27.0-32.0 [facility] Nucleated RBC/100 WBC (Bld) [Ratio] 0 % 0-5 [facility] MCHC Auto (RBC) [Mass/Vol]Or dered By: Gumaro Garcia on 09-08-2022 MCHC (RBC) [Mass/Vol] 33.0 g/dL 32-36 [facility] No Panel InformationOrdered By: Gumaro Garcia on 09-08-2022 Estimated GFR (MDRD) Amer 121 mL/min >60 [facility] Comment on above: GFR Calc Estimated GFR (MDRD) Non-Af Amer 100 mL/min >60 [facility] Comment on above: Non- GFR Calc Thyroid Stimulating Hormone (TSH) 0.60 uIU/mL 0.358-3.74 [facility] Platelets bldOrdered By: Gumaro Garcia on 09-08-2022 Platelets (Bld) [#/Vol] 160 10*3/uL 150-450 [facility] Serum or plasma albumin tejal urement (mass/volume)Ordered By: Gumaro Garcia on 09-08-2022 Albumin [Mass/Vol] 3.7 g/dL 3.2-5.0 [facility] Serum or plasma albumin/glob ulin mass ratioOrdered By: Gumaro Garcia on 09-08-2022 Albumin/Globulin [Mass ratio] 1.0 {ratio} 0.9-2.4 [facility] Serum or plasma calcium tejal urement (mass/volume)Ordered By: Gumaro Garcia on 09-08-2022 Calcium [Mass/Vol] 9.0 mg/dL 8.5-10.1 [facility] Serum or plasma creatinine m easurement (mass/volume)Ordered By: Gumaro Garcia on 09-08-2022 Creatinine [Mass/Vol] 0.64 mg/dL 0.55-1.02 [facility] Comment on above: The validity of the calculated GFR & GFRAA in patients over 70 years has not been determined. Clinical correlation is essential. Serum or plasma urea nitroge n measurement (mass/volume)Ordered By: Gumaro Garcia on 09-08-2022 Urea nitrogen [Mass/Vol] 17 mg/dL 7-18 [facility] Thin prep Papanicolaou smear with manual screeningOrdered By: Gumaro Garcia on 09-08-2022 Thin prep Papanicolaou smear with manual screening 18 U/L 15-37 [facility] Thin prep Papanicolaou smear with manual screening 4 5-15 [facility] No Panel Informationon 12-24 Thyroid Stimulating Hormone (TSH) 0.39 uIU/mL 0.358-3.74 [facility] Work Phone: No Panel Informationon 10-22 Thyroid Stimulating Hormone (TSH) 0.14 uIU/mL 0.358-3.74 [facility] Work Phone: Absolute lymphocyte counton 09-02-2021 Lymphocytes Auto (Unsp spec) [#/Vol] 1.69 10*3/uL 0.83-4.51 [facility] Work Phone: Basophil percentageon 2021 Basophils/100 WBC (Bld) 0.9 % 0-1 [facility] Work Phone: Bilirubin [Mass/Vol] 0.50 mg/dL 0.20-1.00 [facility] Work Phone: Comment on above: For patients on eltr ombopag therapy, use of Dimension Rillito TBIL is not recommended. Chloride [Moles/Vol] 108 mmol/L 98-107 [facility] Work Phone: Eosinophils/100 WBC (Bld) 3.3 % 0-5 [facility] Work Phone: Glucose [Mass/Vol] 98 mg/dL 74-106 [facility] Work Phone: Neutrophils (Bld) [#/Vol] 2.2 10*3/uL 2.0-7.7 [facility] Work Phone: Neutrophils/100 WBC (Bld) 48.3 % 47-70 [facility] Work Phone: Potassium [Moles/Vol] 4.3 mmol/L 3.5-5.1 [facility] Work Phone: Protein [Mass/Vol] 7.0 g/dL 6.4-8.2 [facility] Work Phone: Sodium [Moles/Vol] 139 mmol/L 136-145 [facility] Work Phone: WBC (Bld) [#/Vol] 4.6 10*3/uL 4.4-11.0 [facility] Work Phone: Blood erythrocytes count (nu mber/volume)on 09-02-2021 RBC (Bld) [#/Vol] 4.20 10*6/uL 4.2-5.4 [facility] Work Phone: Blood hemoglobin measurement (mass/volume)on 09-02-2021 Hemoglobin (Bld) [Mass/Vol] 12.7 g/dL 12.0-15.0 [facility] Work Phone: Blood lymphocytes/100 leukoc yteson 09-02-2021 Lymphocytes/100 WBC (Bld) 37.0 % 19-41 [facility] Work Phone: Blood monocytes/100 leukocyt eson 09-02-2021 Monocytes/100 WBC (Bld) 10.3 % 0-10 [facility] Work Phone: Blood platelet adequacy dete ction by light microscopyon 09-02-2021 Platelets LM Ql (Bld) [facility]Q [facility] Work Phone: Blood platelet mean volumeon 09-02-2021 Platelet mean volume (Bld) [Entitic vol] 11.7 fL 6.2-12.0 [facility] Work Phone: Determination of erythrocyte mean corpuscular volume (MCV)on 09-02-2021 MCV (RBC) [Entitic vol] 95.2 fL 81-99 [facility] Work Phone: Hematocrit Auto (Bld) [Volum e fraction]on 09-02-2021 Hematocrit (Bld) [Volume fraction] 40.0 % 37-47 [facility] Work Phone: Laboratory - Chemistry and C hemistry - challengeon 09-02-2021 ALP [Catalytic activity/Vol] 58 U/L 45-117 [facility] Work Phone: ALT [Catalytic activity/Vol] 22 U/L 13-56 [facility] Work Phone: CO2 [Moles/Vol] 27.0 mmol/L 21.0-32.0 [facility] Work Phone: Globulin (S) [Mass/Vol] 3.3 g/dL 2.2-4.2 [facility] Work Phone: Urea nitrogen/Creatinine [Mass ratio] 34.6 mg/mg 10-20 [facility] Work Phone: Laboratory - Hematology and Cell countson 09-02-2021 Erythrocyte distribution width (RBC) [Entitic vol] 44.6 fL 35.1-43.9 [facility] Work Phone: Erythrocyte distribution width (RBC) [Ratio] 12.8 % 11.6-14.6 [facility] Work Phone: Immature granulocytes/100 WBC (Bld) 0.200 % 0.0-0.9 [facility] Work Phone: Comment on above: IG% - Immature Granu locytes (promyelocytes, myelocytes and metamyelocytes) > 1% indicates that a LEFT SHIFT is Present. MCH (RBC) [Entitic mass] 30.2 pg 27.0-32.0 [facility] Work Phone: Nucleated RBC/100 WBC (Bld) [Ratio] 0 % 0-5 [facility] Work Phone: MCHC Auto (RBC) [Mass/Vol]on 09-02-2021 MCHC (RBC) [Mass/Vol] 31.8 g/dL 32-36 [facility] Work Phone: No Panel Informationon 09-02 Atypical Lymphocytes 1+ % [facility] Work Phone: Estimated GFR (MDRD) Amer 137 mL/min >60 [facility] Work Phone: Comment on above: GFR Calc Estimated GFR (MDRD) Non-Af Amer 114 mL/min >60 [facility] Work Phone: Comment on above: Non- GFR Calc Thyroid Stimulating Hormone (TSH) 0.07 uIU/mL 0.358-3.74 [facility] Work Phone: Platelets bldon 09-02-2021 Platelets (Bld) [#/Vol] 152 10*3/uL 150-450 [facility] Work Phone: RBC morphologyon 09-02-2021 RBC morphology finding Nom (Bld) NORM C+C NORMAL NORM C&C [facility] Work Phone: Serum or plasma albumin tejal urement (mass/volume)on 09-02-2021 Albumin [Mass/Vol] 3.7 g/dL 3.2-5.0 [facility] Work Phone: Serum or plasma albumin/glob ulin mass ratioon 09-02-2021 Albumin/Globulin [Mass ratio] 1.1 {ratio} 0.9-2.4 [facility] Work Phone: Serum or plasma calcium tejal urement (mass/volume)on 09-02-2021 Calcium [Mass/Vol] 9.0 mg/dL 8.5-10.1 [facility] Work Phone: Serum or plasma creatinine m easurement (mass/volume)on 09-02-2021 Creatinine [Mass/Vol] 0.58 mg/dL 0.55-1.02 [facility] Work Phone: Comment on above: The validity of the calculated GFR & GFRAA in patients over 70 years has not been determined. Clinical correlation is essential. Serum or plasma urea nitroge n measurement (mass/volume)on 09-02-2021 Urea nitrogen [Mass/Vol] 20 mg/dL 7-18 [facility] Work Phone: Thin prep Papanicolaou smear with manual screeningon 09-02-2021 Thin prep Papanicolaou smear with manual screening 16 U/L 15-37 [facility] Work Phone: Thin prep Papanicolaou smear with manual screening 4 5-15 [facility] Work Phone: .GFRon 09-20-2018 GFR 123 ml/min/1.73sqm Normal [facility] ([place]) Comment on above: Result Comment: GFR Population mean for , Non- Americans Ages 20-29 = 116 mL/min/1.73 sq.m. Ages 30-39 = 107 mL/min/1.73 sq.m. Ages 40-49 = 99 mL/min/1.73 sq.m. Ages 50-59 = 93 mL/min/1.73 sq.m. Ages 60-69 = 85 mL/min/1.73 sq.m. Ages 70+ = 75 mL/min/1.73 sq.m. Chronic Kidney Disease: Less than 60 mL/min/1.73 square meters End Stage Renal Disease: Less than 15 mL/min/1.73 square meters Performed By: #### T SH, LIPID, CMP, GFR #### [facility] [address] [place] [address] GFR Non- 101 ml/min/1.73sqm Normal [facility] ([place]) Comment on above: Result Comment: GFR Population mean for , Non- Americans Ages 20-29 = 116 mL/min/1.73 sq.m. Ages 30-39 = 107 mL/min/1.73 sq.m. Ages 40-49 = 99 mL/min/1.73 sq.m. Ages 50-59 = 93 mL/min/1.73 sq.m. Ages 60-69 = 85 mL/min/1.73 sq.m. Ages 70+ = 75 mL/min/1.73 sq.m. Chronic Kidney Disease: Less than 60 mL/min/1.73 square meters End Stage Renal Disease: Less than 15 mL/min/1.73 square meters Performed By: #### T SH, LIPID, CMP, GFR #### [address] [address] CMPon 09-20-2018 Albumin [Mass/Vol] 4.2 G/dL Normal 3.5-5.0 [facility] ([place]) Comment on above: Performed By: #### T SH, LIPID, CMP, GFR #### [address] [address] Albumin/Globulin [Mass ratio] 1.3 {ratio} Normal 1.1-2.5 [facility] ([place]) Comment on above: Performed By: #### T SH, LIPID, CMP, GFR #### [address] [address] ALP [Catalytic activity/Vol] 63 U/L Normal 40-135 [facility] ([place]) Comment on above: Performed By: #### T SH, LIPID, CMP, GFR #### [address] [address] ALT [Catalytic activity/Vol] 19 U/L Normal 10-35 [facility] ([place]) Comment on above: Performed By: #### T SH, LIPID, CMP, GFR #### [address] [address] AST [Catalytic activity/Vol] 15 U/L Normal 10-40 [facility] ([place]) Comment on above: Performed By: #### T SH, LIPID, CMP, GFR #### [address] [address] Bili Total 0.5 mg/dL Normal 0.2-1.0 [facility] ([place]) Comment on above: Performed By: #### T SH, LIPID, CMP, GFR #### [address] [address] Calcium [Mass/Vol] 9.3 mg/dL Normal 8.4-10.2 [facility] ([place]) Comment on above: Performed By: #### T SH, LIPID, CMP, GFR #### [address] [address] Chloride [Moles/Vol] 104 mmol/L Normal 98-107 [facility] ([place]) Comment on above: Performed By: #### T SH, LIPID, CMP, GFR #### [address] [address] CO2 [Moles/Vol] 29 mmol/L Normal 22-29 [facility] ([place]) Comment on above: Performed By: #### T SH, LIPID, CMP, GFR #### [address] [address] Creatinine [Mass/Vol] 0.61 mg/dL Normal 0.55-1.02 [facility] ([place]) Comment on above: Performed By: #### T SH, LIPID, CMP, GFR #### [address] [address] Electrolyte Balance 8.0 mEq/L Normal [facility] ([place]) Comment on above: Performed By: #### T SH, LIPID, CMP, GFR #### [address] [address] Globulin (S) [Mass/Vol] 3.2 G/dL Normal A [facility] ([place]) Comment on above: Performed By: #### T SH, LIPID, CMP, GFR #### [address] [address] Glucose [Mass/Vol] 100 mg/dL Normal 70-105 [facility] ([place]) Comment on above: Performed By: #### T SH, LIPID, CMP, GFR #### [address] [address] Potassium [Moles/Vol] 4.0 mmol/L Normal 3.5-5.1 [facility] ([place]) Comment on above: Performed By: #### T SH, LIPID, CMP, GFR #### [address] [address] Protein [Mass/Vol] 7.4 G/dL Normal 6.4-8.2 [facility] ([place]) Comment on above: Performed By: #### T SH, LIPID, CMP, GFR #### [address] [address] Sodium [Moles/Vol] 141 mmol/L Normal 136-145 [facility] ([place]) Comment on above: Performed By: #### T SH, LIPID, CMP, GFR #### [address] [address] Urea nitrogen [Mass/Vol] 17 mg/dL Normal 7-18 [facility] ([place]) Comment on above: Performed By: #### T SH, LIPID, CMP, GFR #### [address] [address] Urea nitrogen/Creatinine [Mass ratio] 28 ratio High 7-27 [facility] ([place]) Comment on above: Performed By: #### T SH, LIPID, CMP, GFR #### [address] [address] LIPIDon 09-20-2018 Cholesterol [Mass/Vol] 193 mg/dL Normal 0-200 [facility] ([place]) Comment on above: Result Comment: Chol esterol Reference Interval: Less than 200 Desirable 200-239 Borderline high risk 240 and above High risk Performed By: #### T SH, LIPID, CMP, GFR #### [address] [address] Cholesterol in HDL [Mass/Vol] 58 mg/dL Normal 40-60 [facility] ([place]) Comment on above: Performed By: #### T SH, LIPID, CMP, GFR #### [address] [address] Cholesterol in LDL [Mass/Vol] 126 mg/dL Normal 0-130 [facility] ([place]) Comment on above: Performed By: #### T SH, LIPID, CMP, GFR #### [place] [address] [address] [place] [address] Triglyceride [Mass/Vol] 43 mg/dL Normal 0-150 [facility] ([place]) Comment on above: Result Comment: Trig lyceride Reference Interval: Less than 150 Normal 150-199 Borderline high risk 200-499 High risk 500 or higher Very high risk Performed By: #### T SH, LIPID, CMP, GFR #### [address] [address] TSHon 09-20-2018 TSH Qn 0.87 mcIU/mL Normal 0.36-3.74 [facility] ([place]) Comment on above: Performed By: #### T SH, LIPID, CMP, GFR #### [address] [address] [place] MAMMOGRAM DIAGNOSTIC BILA TERALon 03-15-2018 [place] MAMMOGRAM DIAGNOSTIC BILATERAL ORIGINAL FROM: [place] [address] PROCEDURE FOR: TANJA BUSH [address] [place] [address] Home: PID#: [id number] Exam#: [id number] : 1960 Age: 57 TO: MERLY CACERES APRN [place] [id number] #[id number] BILATERAL DIGITAL DIAGNOSTIC MAMMOGRAM 3D/2D WITH CAD WITH MEDIOLATERAL OBLIQUE CRANIOCAUDAL SPOT COMPRESSION: 03/15/2018 CLINICAL: BILATERAL CALCIFICATIONS. Comparison is made to exams dated: 09/08/2017 mammogram and 08/31/2017 mammogram - [facility]. The tissue of both breasts is heterogeneously dense. Current study was also evaluated with a Computer Aided Detection (CAD) system. The calcifications visible in the right breast on the previous exam are no longer present. There is a 2 cm area of regional calcifications in the left breast at 12 o'clock middle depth. These are seen in additional views. These are not significantly changed. No other significant masses, calcifications, or other findings are seen in either breast. IMPRESSION: PROBABLY BENIGN The 2 cm area of regional calcifications in the left breast likely represent fibrocystic change and appear probably benign. A follow-up mammogram in 6 months is recommended to demonstrate stability.(09/15/19 19) TRACI GATICA MD ab/:03/15/2018 11:33:22 Car Chaser(s): PRISCILLA MCGRATH, RT(R) (M), [facility] letter sent: Probably Benign BI-RADS 3 Mammogram BI-RADS: 3 Probably benign Normal [facility] ([place]) Vital Signs Date Time Vital Sign Value Performing Clinician Faci lity 07-22-2024 10:34-0400 Body temperature 98 [degF] Dr. Gumaro Garcia MD Work Phone: [facility] 07-22-2024 10:34-0400 Diastolic blood pressure 78 mm[Hg] Dr. Gumaro Garcia MD Work Phone: [facility] 07-22-2024 10:34-0400 Heart rate 79 /min Dr. Gumaro Garcia MD Work Phone: [facility] 07-22-2024 10:34-0400 Respiratory rate 15 /min Dr. Gumaro Garcia MD Work Phone: [facility] 07-22-2024 10:34-0400 SaO2% (BldA) [Mass fraction] 98 % Dr. Gumaro Garcia MD Work Phone: [facility] 07-22-2024 10:34-0400 Systolic blood pressure 134 mm[Hg] Dr. Gumaro Garcia MD Work Phone: [facility] 11-10-2021 13:26-0400 Body height 170.[address] Gumaro Garcia Work Phone: [facility] Work Phone: 11-10-2021 13:24-0400 Body mass index (BMI) [Ratio] 22.5 kg/m2 Dr. Gumaro Garcia Work Phone: [facility] Work Phone: 11-10-2021 13:24-0400 Body weight 65.[address] Gumaro Garcia Work Phone: [facility] Work Phone: 11-10-2021 13:24-0400 Diastolic blood pressure 88 mm[Hg] Dr. Gumaro Garcia Work Phone: [facility] Work Phone: 11-10-2021 13:24-0400 Systolic blood pressure 116 mm[Hg] Dr. Gumaro Garcia Work Phone: [facility] Work Phone: Encounters Encounter Date Encounter Type Care Provider Facility Start: 10-20-2062 ambulatory Gumaro Chi Jose Facility:[facility] Start: 10-08-2024 ambulatory Gumaro Chi Jose Facility:[facility] Start: 09-24-2024 ambulatory Gumaro Chi Jose Facility:[facility] Start: 09-17-2024 End: 09-17-[address] Gumaro Garcia MD Work Phone: -[facility] 3rd Flr Start: 09-17-2024 End: 09-17-[address] Gumaro Garcia MD -Labor[facility]rd Fl[facility] Start: 09-17-2024 End: 09-17-2024 ambulatory Gumaro Chi Jose Facility:[facility] Start: 07-22-2024 End: 07-22-2024 Patient encounter procedure Beto MARSHALL -[facility] Work Phone: Start: 07-22-2024 End: 07-22-[address] Gumaro Garcia MD Work Phone: [facility] Work Phone: Start: 02-16-2024 ambulatory Gumaro Chi Jose Facility:[facility] Start: 02-14-2024 End: 02-14-2024 ambulatory Leander KYLE Facility:[facility] Start: 12-29-2023 ambulatory Gumaro Chi Jose Facility:[facility] Start: 12-19-2023 End: 12-19-2023 ambulatory Gumaro Chi Jose Facility:[facility] Start: 10-26-2023 End: 10-26-2023 ambulatory Gumaro Chi Jose Facility:[facility] Start: 10-03-2023 End: 10-03-2023 ambulatory [facility] Facility:[facility] Start: 09-20-2022 End: 09-20-2022 ambulatory [facility] Work Phone: Start: 09-20-2022 End: 09-20-2022 [facility] Start: 09-08-2022 End: 09-08-2022 ambulatory [facility] Work Phone: Start: 09-08-2022 End: 09-08-2022 [facility] Start: 12-24-2021 End: 12-24-[address] Gumaro Garcia Work Phone: [facility] Work Phone: Start: 12-24-2021 End: 12-24-[address] [facility]um[facility] Start: 11-10-2021 End: 11-10-[address] Gumaro Garcia Work Phone: [facility] Start: 10-22-2021 End: 10-22-[address] [facility]umaro Garcia [facility] Start: 09-18-2021 End: 09-18-2021 [facility] Start: 09-16-2021 End: 09-16-2021 [facility] Start: 09-02-2021 End: 09-02-2021 [facility] Procedures Date Procedure Procedure Detail Performing Clinician Start: 09-17-2024 Lymphocyte percent differential count Dr. Gumaro Garcia MD Work Phone: Start: 09-20-2022 Screening mammography Start: 09-18-2021 Mammography Start: 09-16-2021 CT of chest Start: 09-16-2021 Screening mammography Plan of Treatment Date Care Activity Detail Author MG Breast - bilateral Screening [facility] Work Phone: Payers Date Payer Category Payer Self-pay [id number] 2015 Unknown [id number] Unknown [id number] 2.16.8 [id number] Unknown [id number] 2.16.8 [id number] Unknown [id number] 2.16.8 [id number] Unknown [id number] 2.16.8 [id number] Unknown [id number] 2.16.8 [id number] Unknown [id number] 2.16.8 [id number] Unknown [id number] 2.16.8 [id number] Unknown [id number] 2.16.8 [id number] Unknown [id number] 2.16.8 [id number] Unknown [id number] 2.16.8 [id number] Unknown [id number] 2.16.8 [id number] Unknown [id number] 2.16.8 [id number] Unknown [id number] 2.16.8 [id number] Social History Date Type Detail Facility Start: 03-13-2021 End: 11-10-2021 Tobacco smoking status NYIS Unknown if ever smoked [facility] Start: 1960 Sex Assigned At Female W [facility] Start: 11-10-2021 Tobacco smoking stat us NYIS Ex-smoker (finding) [facility] Evaluation note 07-22-2024 Note Date & Type Note Facility 07-22-2024 Evaluation note Diagnosis Onset Date Resolution URI (upper respiratory infection) acute July 22, 2024 10:28am [facility] Work Phone: Evaluation note Note Date & Type Note Facility Evaluation note No assessment information availa ble [facility] Work Phone: Evaluation note Note Date & Type Note Facility Evaluation note Diagnosis Onset Date Encounter for routine gyneco logical examination noneactive [facility] Work Phone: Evaluation note Note Date & Type Note Facility Evaluation note Diagnosis Onset Date Resolution URI (upper respiratory infection) acute July 22, 2024 10:28am [facility] Work Phone: Reason for referral (narrative) Note Date & Type Note Facility Reason for referral (narrative) No reason for referral information available [facility] Work Phone: Summary Purpose Family History No Family History Records Found Relationship Condition Age at Onset Recorded Date/T millie brother Malignant neoplasm Unknown sister Malignant neoplasm Unknown mother Cardiac disease Unknown father Cardiac disease Unknown Advance Directives No Advanced Directives Records FoundNo Advanced Directives Records Found Chief Complaint and Reason for Visit Chief Complaint SCREENING RT BREAST ABN MAMM Chief Complaint SCREENING RT BREAST ABN MAMM Annual ([employer]) LABWORK Reason for Visit Encounter for routin e gynecological examination Chief Complaint SCREENING Chief Complaint Admit Date DEEP COUGH July 22, 2024 10:28 am Reason for Visit Admit Date URI (upper respiratory infection) July 222024 10:28am Additional Source Comments INFORMATION SOURCE (unrecogn ized section and content) DATE CREATED AUTHOR 09/25/2018 [facility] ([place]) DATE CREATED AUTHOR AUTHOR'S ORGANIZ ATION 09/24/2024 [facility] Goals (unrecognized section and content) Goals may be documented in a n alternate sectionGoals may be documented in an alternate sectionGoals may be documented in an alternate sectionGoals may be documented in an alternate sectionGoals may be documented in an alternate sectionGoals may be documented in an alternate sectionGoals may be documented in an alternate sectionGoals may be documented in an alternate section Care Teams (unrecognized sec tion and content) Team Status: Active Member Role Status Dates Dr. Scar Mcqueen DO Family Provider Active Dr. Gumaro Garcia MD Primary Care Provider Active Team Status: Inactive Member Role Status Dates Dr. Gumaro Garcia MD Primary Care Provider, Attending Provider Active Team Status: Inactive Member Role Status Dates Dr. Gumaro Garcia MD Primary Care Provi deejay, Attending Provider, Referring Provider Active Team Status: Inactive Member Role Status Dates Dr. Gumaro Garcia MD Primary Care Provider Active Start: July 22, 2024 End: July 22, 2024 Dr. Gumaro Garcia MD Referring Provider Active Start: July 22, 2024 End: July 22, 2024 Beto Villalpando NP, [employer]-C Attending Provider Active S tart: July 22, 2024 End: July 22, 2024 Team Status: Active Member Role/Relationship Status Dates Dr. Gumaro Garcia MD Primary Care Provider Active Team Status: Inactive Member Role/Relationship Status Dates Dr. Gumaro Garcia MD Primary Care Provider Active Start: July 22, 2024 End: July 22, 2024 Dr. Gumaro Garcia MD Referring Provider Active Start: July 22, 2024 End: July 22, 2024 Beto Villalpando NP, NP-C Attending Provider Active S tart: July 22, 2024 End: July 22, 2024 Team Status: Inactive Member Role/Relationship Status Dates Dr. Gumaro Garcia MD Primary Care Provider Active Start: September 17, 2024 End: September 17, 2024 Dr. Gumaro Garcia MD Attending Provider Active Start: September 17, 2024 End: September 17, 2024 FOR RECORDS PERTAINING TO PATIENTS WHO ARE OR HAVE BEEN ENROLLED IN A CHEMICAL DEPENDENCY/SUBSTANCEABUSE PROGRAM, SOME INFORMATION MAY BE OMITTED. This clinical summary was aggregated from multiple sources. Caution should be exercised in using it in the provision of clinical care. This summary normalizes information from multiple sources, and as a consequence, information in this document may materially change the coding, format and clinical context of patient data. In addition, data may be omitted in some cases. CLINICAL DECISIONS SHOULD BE BASED ON THE PRIMARY CLINICAL RECORDS. [facility] [employer] [employer]. provides no warranty or guarantee of the accuracy or completeness of information in this document.
== END | disposition home or self-care (01) ==
LOC: OPBI 16:03
PROVIDERS: PCP Family Medicine Geriatric Medicine; Referring Provider Family Medicine Geriatric Medicine; Visit Provider Family Medicine Geriatric Medicine
DX: Z12.31 Encounter for screening mammogram for malignant neoplasm of breast (principal)
CPT/HCPCS: 77063; 77067

== ENCOUNTER → 2024-10-08 | Outpatient (CLI) | payer BC, SELFPAY ==
--- OUTSIDE RECORDS SUMMARY | 2024-10-08 06:08 | XMS RPT_ITS | CCD ---
Author Organization [facility] Care Team Providers Care Culinary Specialist Name Role Phone Jose, Dr. Gumaro Matta Primary Care Provider Jose, Dr. Gumaro Matta Referring Provider [phone] Bob LOUIE, PI/SENIOR RESEARCH ASSOCIATE-C Belkis Attending Provider Jose MELTON, Dr. Gumaro Matta Primary Care Provider [phone] Jose MELTON, Dr. Gumaro Matta Referring Provider Kwasi PI/SENIOR RESEARCH ASSOCIATE-CBeto Attending Provider Jose MELTON, Dr. Gumaro Matta Attending Provider [phone] Jose, Gumaro Chi Attending Unavailable Jose, Gumaro Chi Primary Care Unavailable Jose, Gumaro Chi Attending Unavailable Jose, Gumaro Chi Referring Unavailable Jose, Gumaro Chi Primary Care Unavailable Vikash Redmond Attending Unavailable Jose, Gumaro Chi Primary Care Unavailable Vikash Redmond Referring Unavailable Jose, Gumaro Chi Attending Unavailable Jose, Gumaro Chi Referring Unavailable Jose, Gumaro Chi Primary Care Unavailable Jose, Gumaro Chi Attending Unavailable Jose, Gumaro Chi Referring Unavailable Jose, Gumaro Chi Primary Care Unavailable Toño Villafuerte Attending Unavailable Jose, Gumaro Chi Referring Unavailable Jose, Gumaro Chi Primary Care Unavailable Beto Villalpando NP Attending Unavailable Jose, Gumaro Chi Referring Unavailable Jose, Gumaro Chi Primary Care Unavailable Vikash Redmond Attending Unavailable Jose, Gumaro Chi Referring Unavailable Jose, Gumaro Chi Primary Care Unavailable Arun Corral Attending Unavailable Jose, Gumaro Chi Primary Care Unavailable Aydee Delatorre Attending Unavailable Jose, Gumaro Chi Referring Unavailable Jose, Gumaro Chi Primary Care Unavailable Vikash Redmond Attending Unavailable Jose, Gumaro Chi Primary Care Unavailable Jose, Gumaro Chi Referring Unavailable Leander Park Attending Unavailable Jose, Gumaro Chi Referring Unavailable Jose, Gumaro Chi Primary Care Unavailable Jose, Gumaro Chi Attending Unavailable Jose, Gumaro Chi Primary Care Unavailable Jose, Gumaro Chi Attending Unavailable Jose, Gumaro Chi Referring Unavailable Jose, Gumaro Chi Primary Care Unavailable Allergies Allergy Classification Reported Allergen(s) Allergy Type Date of Onset Reaction(s) Facility (9 sources) Acetaminophen Drug Allergy 04-04-19 [facility] (9 sources) Aspirin Drug Allergy 04-04-19 [facility] (9 sources) Caffeine Drug Allergy 04-04-19 [facility] (9 sources) methylPREDNISolone Drug Allergy 04-04-19 [facility] (9 sources) Nortriptyline Drug Allergy 04-04-19 [facility] (3 sources) cloNIDine Drug Allergy 07-23-19 [facility] (3 sources) LORazepam Drug Allergy 07-23-19 25 [facility] (1 source) Acetaminophen Drug Allergy 07-23-19 [facility] (1 source) Aspirin Drug Allergy 07-23-19 25 [facility] (1 source) Caffeine Drug Allergy 07-23-19 25 [facility] (1 source) cloNIDine Drug Allergy 07-23-19 25 [facility] (1 source) LORazepam Drug Allergy 07-23-19 25 [facility] (1 source) methylPREDNISolone Drug Allergy 07-23-19 [facility] (1 source) Nortriptyline Drug Allergy 07-23-19 [facility] Medications Current Medications Medication Drug Class(es) Dates Sig (Normalized) Sig (Original) benzonatate 200 mg oral capsule (3 sources) Non-narcotic Antitussive Start: 02-14-2024 take 1 capsule by mouth three times daily as needed for cough Benzonatate 200 mg capsule Active 200 mg PO THREE TIMES A DAY as needed for cough 20 0 February 14, 2024 1:00am busPIRone hydrochloride 30 mg oral tablet (12 sources) Start: 10-03-2023 take 1 tablet by mouth twice daily Buspirone 30 mg tablet Active 30 mg PO TWICE A DAY October 03, 2023 12:00am Start: 01-01-2019 End: 11-10-2021 take 1 tablet by mouth once daily Buspirone 30 mg tablet Discontinued 30 mg PO DAILY 180 0 January 01, 2019 12:00am November 10, 2021 1:25pm fexofenadine hydrochloride 180 mg oral tablet (3 sources) Histamine-1 Receptor Antagonist Start: 02-14-2024 take 1 tablet by mouth once daily Fexofenadine 180 mg tablet Active 180 mg PO daily 30 0 February 14, 2024 1:00am levothyroxine sodium 0.125 mg oral tablet (12 sources) l-Thyroxine Start: 10-03-2023 take 1 tablet by mouth once daily Levothyroxine 125 mcg tablet Active 125 ug PO daily October 03, 2023 12:00am Start: 01-01-2019 End: 11-10-2021 take 1 tablet by mouth once daily Levothyroxine 137 mcg tablet Discontinued 137 ug PO DAILY 30 January 01, 2019 12:00am November 10, 2021 1:25pm Multivitamin tablet (3 sources) Start: 10-03-2023 Multivitamin t ablet Active 1 {tbl} PO DAILY October 03, 2023 12:00am Completed/Discontinued Medications Medication Drug Class(es) Dates Sig (Normalized) Sig (Original) amoxicillin 875 mg / clavulanate 125 mg oral tablet (9 sources) Penicillin-class Antibacterial Start: 04-04-2020 End: 04-14-2020 Amoxicillin-Pot Clavulanate (Augmentin) 875-125 mg tablet Discontinued 1 {tbl} PO Q12H 20 10 0 April 04, 2020 1:00am April 13, 2020 1:00am April 14, 2020 1:03am Acute sinusitis, unspecified calcium carbonate 1250 mg oral tablet (9 sources) Start: 01-01-2019 End: 11-10-2021 take 1 tablet by mouth once daily Calcium Carbonate (Calcium 500) 500 mg calcium (1,250 mg) tablet Discontinued 500 mg PO DAILY January 01, 2019 12:00am November 10, 2021 1:25pm doxycycline hyclate 100 mg oral capsule (3 sources) Tetracycline-class Drug Start: 07-22-2024 End: 07-29-2024 take 1 capsule by mouth twice daily Doxycycline Hyclate 100 mg capsule Discontinued 100 mg PO TWICE A DAY 14 7 0 July 22, 2024 12:00am July 28, 2024 12:00am July 29, 2024 12:06am 84 hr estradiol 0.71201 mg/hr / norethindrone acetate 0.31160 mg/hr transdermal system (9 sources) Estrogen Start: 10-17-2019 End: 10-31-2019 Estradiol-Norethin [...] 4 days predniSONE 20 mg oral tablet (3 sources) Start: 07-22-2024 End: 07-27-2024 take 2 [...] mammogram for malignant neoplasm of breast] Onset: 09-28-2024 Episodic Other upper respiratory infections (9 sources) Acute sinusitis; Translations: [Acute sinusitis, unspecified] 07-22-2024 Episodic Screening and history of mental health and substance abuse codes (1 source) Personal history of nicotine dependence; Translations: [Personal history of nicotine dependence] Onset: 09-27-2024 Episodic Superficial injury; contusion (3 sources) Contusion of rib; Translations: [Contusion of right front wall of thorax, initial encounter] Episodic Thyroid disorders (1 source) Hypothyroidism, unspecified; Translations: [Hypothyroidism, unspecified] Onset: 07-22-2024 Chronic Viral infection (9 sources) Disease caused by 2019-nCoV; Translations: [COVID-19] 11-10-2021 Episodic Past or Other Problems Problem Classification Problem Date Documented Da te Episodic/Chronic Other non-traumatic joint disorders (4 sources) Pain in left shoulder; Translations: [Left shoulder pain] Onset: 02-13-2024 10-03-2023 Episodic Residual codes; unclassified (1 source) Chills (without fever); Translations: [Chills (without fever)] Onset: 02-15-2024 Episodic Unclassified (6 sources) Uterine ablation 11-10-2021 Comment on above: 10 years Results Test Name Value Interpretation Reference Range Facility Coronary Angiography CTon Coronary Angiography [facility] Imaging Services [address] [place] [address] 09/29/24 1133 MR#: [id number] Acct: [id number] Name: TANJA BUSH Rep #: [id number] : 1960 64 From: Arun Corral MD PCP: Dr. Gumaro Garcia MD Status:REG REF Y Location: CT Calcium Scoring Date of Study:: 09/28/24 Indications Indications: Family history Coronary Calcium Scoring: High-resolution Computed Tomographic imaging of the chest was performed on [09/28/2024], with particular attention paid to the coronary arteries. Images from the examination were analyzed for the presence and extent of coronary artery calcification , using coronary calcium quantification software. The patient tolerated the procedure well and there were no complications. The results of the coronary calcification analysis are provided below. Findings Coronary Artery Left Main (LM): 0 Left Anterior Descending (LAD): 61.5 Left Circumflex (LCX): 0 Right Coronary Artery (RCA): 0 Total Agatston Score: 61.5 Percentile Rankinth percentile Calcium Scoring Interpretation: Different methods to categorize the overall amount of coronary plaque. Overall amount CAC SIS Visual of coronary plaque P1 Mild -100 <2 1-2 vessels with mild amount of plaque P2 Moderate 101-300 3-4 1-2 vessels with moderate amount, 3 vessels with mild amount of plaque P3 Severe 301-999 5-7 3 vessels with moderate amount, 1 vessel with severe amount of plaque P4 Extensive >1000 >8 2-3 vessels with severe amount of plaque Calcium Score: Mild: 1-2 vessels w/mild amount of plaque Conclusion: Mild focal calcification noted 09/29/24 1134 Date Arun Corral MD Cosigner Signature (if applicable): Date CC: Dr. Arun Corral MD; Dr. Gumaro Garcia MD Signed Normal [facility] Limited Chest CT Cardiac Onl yon 09-28-[address] Cardiac Only [facility] Imaging Services [address] [place] [id number] Cardiac Only MR#: [id number] Acct: [id number] Name: TANJA BUSH Rep #: [id number] : 1960 F 64 From: Jefe Ding PCP: Dr. Gumaro Garcia MD Status: REG REF Study: Limited Chest CT Cardiac Only Date of Exam: Exam# [id number] Ordering Dr: Gumaro Garcia MD PROCEDURE: LIMITED CHEST CT CARDIAC ONLY 09/28/2024 REASON FOR EXAM: FAMILY HX OF CARDIOVASCULAR DISEASE TECHNIQUE: CT performed for coronary artery calcium scoring. One or more dose reduction techniques were used (e.g., Automated exposure control, adjustment of the mA and/or kV according to patient size, use of iterative reconstruction technique). RADIATION DOSE SUMMARY: CTDlvol: 12.19 mGy DLP: 268.17 mGycm COMPARISON: Chest CT 09/16/2021 CT/Limited Chest CT Cardiac Only IMPRESSION: Limited imaging of the lungs demonstrates no acute process. Moderate pulmonary emphysematous changes are again present. No pleural effusion or pneumothorax is seen in visualized areas. No adenopathy is noted. The visualized upper abdomen demonstrates no significant abnormality. Moderate aortic calcification is seen. [facility] CC: Dr. Gumaro Garcia MD Advertising Solicitor: Signed Normal [facility] Breast imaging reportOrdered By: Valeri Dunham on 09-24-2024 Study report [facility] Imaging Services [address] [place] [address] SCRN MAMM (CAD)W/SHABBIR BILAT MR#: [id number] Acct: [id number] Name: TANJA BUSH Rep #: [id number] : 1960 F 64 From: Tang Stewart MD PCP: Dr. Gumaro Garcia MD Status: SUMMER VALERIO Study:SCRN MAMM (CAD)W/SHABBIR BILAT Date of Exa m: 09/24/24 Exam# [id number] Ordering Dr: Gumaro Garcia MD EXAM: SCRN MAMM (CAD)W/SHABBIR BILAT DATE: 09/24/2024 CLINICAL HISTORY: F, Age 64 y/o , SCREENING TECHNIQUE: SCRN MAMM (CAD)W/SHABBIR BILAT COMPARISON: Prior exam(s) were compared FINDINGS: TISSUE DENSITY: The breasts are heterogeneously dense, which may obscure small masses. Bilateral Breast Mammographic Findings: No suspicious masses, calcifications or other abnormalities are identified. BI/SCRN MAMM (CAD)W/SHABBIR BILAT IMPRESSION: No mammographic evidence of malignancy. OVERALL FINAL ASSESSMENT BI-RADS 1: NEGATIVE. RECOMMENDATION: Routine annual follow-up in 1 Year A letter with findings and recommendations will be mailed to the patient. Reading Location: [id number] CC: Dr. Gumaro Garcia MD ~ Advertising Solicitor: Signed [facility] SCRN MAMM (CAD)W/SHABBIR BILATo n 09-24-2024 SCRN MAMM (CAD)W/SHABBIR BILAT [facility] Imaging Services [address] [place] [address] SCRN MAMM (CAD)W/SHABBIR BILAT MR#: [id number] Acct: [id number] Name: TANJA BUSH Rep #: [id number] : 1960 F 64 From: Valeri Dai i, MD PCP: Dr. Gumaro Garcia MD Status: REG CLI Study: SCRN MAMM (CAD)W/SHABBIR BILAT Date of Exam: 09/05 03/31 Exam# [id number] Ordering Dr: Gumaro Garcia MD EXAM: SCRN MAMM (CAD)W/SHABBIR BILAT DATE: 09/24/2024 CLINICAL HISTORY: F, Age 64 y/o , SCREENING TECHNIQUE: SCRN MAMM (CAD)W/SHABBIR BILAT COMPARISON: Prior exam(s) were compared FINDINGS: TISSUE DENSITY: The breasts are heterogeneously dense, which may obscure small masses. Bilateral Breast Mammographic Findings: No suspicious masses, calcifications or other abnormalities are identified. BI/SCRN MAMM (CAD)W/SHABBIR BILAT IMPRESSION: No mammographic evidence of malignancy. OVERALL FINAL ASSESSMENT BI-RADS 1: NEGATIVE. RECOMMENDATION: Routine annual follow-up in 1 Year A letter with findings and recommendations will be mailed to the patient. Reading Location: [id number] CC: Dr. Gumaro Garcia MD Advertising Solicitor: Signed Normal [facility] Absolute lymphocyte countOrd ered By: Gumaro Garcia on 09-17-2024 Lymphocytes Auto (Unsp spec) [#/Vol] 1.73 10*3/uL 0.83-4.51 [facility] Absolute neutrophil countOrd ered By: Gumaro Garcia on 09-17-2024 Neutrophils (Bld) [#/Vol] 2.6 10*3/uL 2.0-7.7 [facility] Anion gap in Serum or Plasma Ordered By: Gumaro Garcia on 09-17-2024 Anion gap [Moles/Vol] 10 mmol/L 5-15 [facility] BUN/creatinine ratioOrdered By: Gumaro Garcia on 09-17-2024 Urea nitrogen/Creatinine [Mass ratio] 40.0 mg/mg High 10-20 [facility] Basophil percentageOrdered B y: Gumaro Garcia on 09-17-2024 Basophils/100 WBC (Bld) 1.2 % High 0-1 [facility] Bilirubin, totalOrdered By: Gumaro Jose on 09-17-2024 Bilirubin [Mass/Vol] 0.42 mg/dL 0.00-1.30 [facility] Blood platelets count (numbe r/volume)Ordered By: Gumaro Garcia on 09-17-2024 Platelets (Bld) [#/Vol] 164 10*3/uL 150-450 [facility] CBC W/Diff, Automatedon 09-04 PLT EST A Normal ADEQ [facility] Comment on above: Performed By: #### L 100.0100, L500.4050, L501.9520 #### [facility] [address] [place], [address] ATYPICAL LYMPH 2+ Normal [facility] Comment on above: Performed By: #### L 100.0100, L500.4050, L501.9520 #### [facility] [address] [place], [address] Carbon dioxide, total [Moles /volume] in Central venous bloodOrdered By: Gumaro Garcia on 09-17-2024 CO2 [Moles/Vol] 25.6 mmol/L 21.0-32.0 [facility] Chloride assayOrdered By: Stef Garcia on 09-17-2024 Chloride [Moles/Vol] 105 mmol/L 98-108 [facility] Comprehensive Metabolic Prof ilon 09-17-2024 Albumin [Mass/Vol] 4.4 g/dL Normal 3.4-4.8 [facility] Comment on above: Performed By: #### L 100.0100, L500.4050, L501.9520 #### [facility] [address] [place], [address] Albumin/Globulin [Mass ratio] 1.7 {ratio} Normal 0.9-2.4 [facility] Comment on above: Performed By: #### L 100.0100, L500.4050, L501.9520 #### [facility] [address] [place], [address] ALK PHOS 61 U/L Normal 35-104 [facility] Comment on above: Performed By: #### L 100.0100, L500.4050, L501.9520 #### [facility] [address] [place], [address] ALT [Catalytic activity/Vol] 14 U/L Normal <=34 [facility] Comment on above: Performed By: #### L 100.0100, L500.4050, L501.9520 #### [facility] [address] [place], [address] AST [Catalytic activity/Vol] 21 U/L Normal <=31 [facility] Comment on above: Performed By: #### L 100.0100, L500.4050, [id number] #### [facility] [address] [place], [address] Bilirubin [Mass/Vol] 0.42 mg/dL Normal 0.00-1.30 [facility] Comment on above: Performed By: #### L 100.0100, L500.4050, L501.9520 #### [facility] [address] [place], [address] BUN/CRE 40.0 RATIO High 10-20 [facility] Comment on above: Performed By: #### L 100.0100, L500.4050, [id number] #### [facility] [address] [place], [address] Calcium [Mass/Vol] 9.2 mg/dL Normal 7.6-11.0 [facility] Comment on above: Performed By: #### L 100.0100, L500.4050, L501.9520 #### [facility] [address] [place], [address] Chloride [Moles/Vol] 105 mmol/L Normal 98-108 [facility] Comment on above: Performed By: #### L 100.0100, L500.4050, [id number] #### [facility] [address] [place], [address] CO2 [Moles/Vol] 25.6 mmol/L Normal 21.0-32.0 [facility] Comment on above: Performed By: #### L 100.0100, L500.4050, [id number] #### [facility] [address] [place], [address] Creatinine [Mass/Vol] 0.62 mg/dL Low 0.70-1.20 [facility] Comment on above: Performed By: #### L 100.0100, L500.4050, [id number] #### [facility] [address] [place], [address] GAP 10 Normal 5-15 [facility] Comment on above: Performed By: #### L 100.0100, L500.4050, [id number] #### [facility] [address] [place], [address] GFR/1.73 sq M.predicted among non-blacks MDRD (S/P/Bld) [Vol rate/Area] 101 mL/min/{1.73_m2} Normal >60 [facility] Comment on above: Result Comment: mL/m in/1.73m2 CKD-EPI Creatinine Equation (2020) Performed By: #### L 100.0100, L500.4050, L501.9520 #### [facility] [address] [place], [address] Globulin (S) [Mass/Vol] 2.6 g/dL Normal 2.2-4.2 [facility] Comment on above: Performed By: #### L 100.0100, L500.4050, L501.9520 #### [facility] [address] [place], [address] Glucose [Mass/Vol] 93 mg/dL Normal 70-99 [facility] Comment on above: Performed By: #### L 100.0100, L500.4050, L501.9520 #### [facility] [address] [place], [address] Potassium [Moles/Vol] 4.3 mmol/L Normal 3.3-5.1 [facility] Comment on above: Performed By: #### L 100.0100, L500.4050, [id number] #### [facility] [address] [place], [address] Sodium [Moles/Vol] 140 mmol/L Normal 133-145 [facility] Comment on above: Performed By: #### L 100.0100, L500.4050, [id number] #### [facility] [address] [place], [address] T PROT 7.0 g/dL Normal 5.9-8.4 [facility] Comment on above: Performed By: #### L 100.0100, L500.4050, L501.9520 #### [facility] [address] [place], [address] Urea nitrogen [Mass/Vol] 25 mg/dL High 4-19 [facility] Comment on above: Performed By: #### L 100.0100, L500.4050, L501.9520 #### [facility] [address] [place], [address] Eosinophil %Ordered By: Gumaro Garcia on 09-17-2024 Eosinophils/100 WBC (Bld) 4.2 % 0-5 [facility] Erythrocyte distribution wid th ratioOrdered By: Gumaro Garcia on 09-17-2024 Erythrocyte distribution width (RBC) [Ratio] 13.3 % 11.6-14.6 [facility] Glomerular filtration rate ( GFR) estimation/1.73 sq m using serum, plasma, or whole bOrdered By: Gumaro Garcia on 09-17-2024 GFR/1.73 sq M.predicted among non-blacks MDRD (S/P/Bld) [Vol rate/Area] 101 mL/min/{1.73_m2} >60 [facility] Comment on above: mL/min/1.73m2 CKD-EP I Creatinine Equation (2020) Hematocrit Auto (Bld) [Volum e fraction]Ordered By: Gumaro Garcia 09-17-2024 Hematocrit (Bld) [Volume fraction] 39.4 % 37-47 [facility] Hemoglobin measurementOrdere d By: Gumaro Garcia 09-17-2024 Hemoglobin (Bld) [Mass/Vol] 12.9 g/dL 12.0-15.0 [facility] Immature granulocyte percent ageOrdered By: Gumaro Garcia 09-17-2024 Immature granulocytes/100 WBC (Bld) 0.200 % 0.0-0.9 [facility] Comment on above: IG% - Immature Granu locytes (promyelocytes, myelocytes and metamyelocytes) > 1% indicates that a LEFT SHIFT is Present. Laboratory - Chemistry and C hemistry - challengeOrdered By: Gumaro Garcia 09-17-2024 AST [Catalytic activity/Vol] 21 U/L <32 [facility] Lymphocyte %Ordered By: Gumaro Garcia 09-17-2024 Lymphocytes/100 WBC (Bld) 34.3 % 19-41 [facility] MCV (mean corpuscular volume ) determinationOrdered By: Gumaro Garcia 09-17-2024 MCV (RBC) [Entitic vol] 93.1 fL 81-99 [facility] Mean corpuscular hemoglobin (MCH) determinationOrdered By: Gumaro Garcia 09-17-2024 MCH (RBC) [Entitic mass] 30.5 pg 27.0-32.0 [facility] Mean corpuscular hemoglobin concentration (MCHC) determinationOrdered By: Gumaro Garcia 09-17-2024 MCHC (RBC) [Mass/Vol] 32.7 g/dL 32-36 [facility] Mean platelet volume determi nationOrdered By: Gumaro Garcia on 09-17-2024 Platelet mean volume (Bld) [Entitic vol] 11.9 fL 6.2-12.0 [facility] Monocyte percentageOrdered B y: Gumaro Garcia on 09-17-2024 Monocytes/100 WBC (Bld) 8.7 % 0-10 [facility] Neutrophil %Ordered By: Gumaro Garcia 09-17-2024 Neutrophils/100 WBC (Bld) 51.4 % 47-70 [facility] Platelet estimateOrdered By: Gumaro Garcia on 09-17-2024 Platelets LM Ql (Bld) A ADEQ [facility] Potassium measurement (mass/ volume)Ordered By: Gumaro Garcia 09-17-2024 Potassium (Unsp spec) [Mass/Vol] 4.3 mmol/L 3.3-5.1 [facility] RBC Auto (Bld) [#/Vol]Ordere d By: Gumaro Garcia 09-17-2024 RBC (Bld) [#/Vol] 4.23 10*6/uL 4.2-5.4 [facility] RDWOrdered By: Gumaro Garcia on 0 09-17-2024 RDW 46.0 fl High 35.1-43.9 [facility] Serum creatinine measurement (mass/volume)Ordered By: Gumaro Garcia 09-17-2024 Creatinine [Mass/Vol] 0.62 mg/dL Low 0.70-1.20 [facility] Serum globulin measurementOr dered By: Gumaro Garcia 09-17-2024 Globulin (S) [Mass/Vol] 2.6 g/dL 2.2-4.2 [facility] Serum glucose measurement (m ass/volume)Ordered By: Gumaro Garcia 09-17-2024 Glucose [Mass/Vol] 93 mg/dL 70-99 [facility] Serum or plasma alanine cao otransferase (ALT) measurementOrdered By: Gumaro Garcia 09-17-2024 ALT [Catalytic activity/Vol] 14 U/L <35 [facility] Serum or plasma albumin tejal urement (mass/volume)Ordered By: Gumaro Garcia 09-17-2024 Albumin [Mass/Vol] 4.4 g/dL 3.4-4.8 [facility] Serum or plasma albumin/glob ulin mass ratioOrdered By: Gumaro Garcia on 09-17-2024 Albumin/Globulin [Mass ratio] 1.7 {ratio} 0.9-2.4 [facility] Serum or plasma alkaline ashly sphatase measurementOrdered By: Gumaro Garcia on 09-17-2024 ALP [Catalytic activity/Vol] 61 U/L 35-104 [facility] Serum or plasma calcium tejal urement (mass/volume)Ordered By: Gumaro Garcia on 09-17-2024 Calcium [Mass/Vol] 9.2 mg/dL 7.6-11.0 [facility] Serum or plasma urea nitroge n measurement (mass/volume)Ordered By: Gumaro Garcia 09-17-2024 Urea nitrogen [Mass/Vol] 25 mg/dL High 4-19 [facility] Sodium levelOrdered By: Gumaro Garcia 09-17-2024 Sodium [Moles/Vol] 140 mmol/L 133-145 [facility] TSH DL <= 0.005 mIU/L QnOrde red By: Gumaro Garcia on 09-17-2024 TSH Qn 0.932 uIU/mL 0.300-4.200 [facility] Thyroid Stim Hormone (TSH)on 09-17-2024 TSH 0.932 uIU/mL Normal 0.300-4.200 [facility] Comment on above: Performed By: #### L 100.0100, L500.4050, L501.9520 #### [facility] [place], [place], [id number] Total proteinOrdered By: Gumaro Garcia 09-17-2024 Protein [Mass/Vol] 7.0 g/dL 5.9-8.4 [facility] White blood cell (WBC) count Ordered By: Gumaro Garcia on 09-17-2024 WBC (Bld) [#/Vol] 5.1 10*3/uL 4.4-11.0 [facility] Urgent Care Visit Reporton 0 07-22-2024 Urgent Care Visit Report [facility] [address], [address] [place], [place] [address] OFFICE VISIT Date of Service: 07/22/24 MR#: [id number] Acct: [id number] Name: TANJA BUSH Rep #: [id number] : 1960 Provider: ROLANDO rodriguez Age/Sex: 64/F Location: [facility] Status: Signed Intake Vital Signs 02/14/24 16:00 [...] Reasons: DEEP COUGH Chief Complaint: cough, congestion Belt Sander Required: No Is patient in pain?: No [...] 2 current occupational status: employed current occupation: [employer] current occupational exposures/hazards: No pets and animals: [...] throat swelling (more content not included)... Normal [facility] Urgent Care Visit Reporton 1 04-16-2023 Urgent Care Visit Report [facility] [address], [address] [place] [address] OFFICE VISIT Date of Service: 02/14/24 MR#: [id number] Acct: [id number] Name: TANJA BUSH Rep #: [id number] : 1960 Provider: ANABELLA Iqbal Age/Sex: 63/F Location: [facility] Status: Signed Intake Vital Signs 10/26/23 08:56 02/14/24 16:00 Height 5 ft 7 in 5 ft 7.5 in Weight: 140 lb BMI 21.6 BP 122/78 H Blood Pressure Location Lt brachial Position Sitting Respiration 14 Pulse 86 Pulse Source NIBP Temp 98.1 F Temp Source Oral Intake Visit Reasons: cough Chief Complaint: cough, chest and sinus congestion Belt Sander Required: No Is patient in pain?: No [...] She states that had upper respiratory infection. [facility] Medical History Left shoulder pain Skin cancer Constantin's disease COVID-19 Thyroid disease Surgical History History of endometrial ablation Previous section History of breast surgery History of thyroid surgery Family History Brother Cancer Sister Cancer Mother Heart disease Father Heart disease Social History adopted: No household members: spouse and family housing: apartment number of children: 2 current occupational status: employed current occupation: [employer] current occupational exposures/hazards: No pets and animals: [...] Rhythm: reg (more content not included)... Normal [facility] Orthopedic Visit Reporton Orthopedic Visit Report [facility] [place] [address] OFFICE VISIT Date of Service: 12/19/23 MR#: [id number] Acct: [id number] Name: TANJA BUSH Rep #: [id number] : 1960 Provider: Dr. Vikash sanchez MD Age/Sex: 63/F Location: [facility] Status: Signed Intake Vital Signs 10/26/23 08:56 [...] Medical History Left shoulder pain Skin cancer Koshkonong's disease COVID-19 Thyroid disease Surgical History History of endometrial ablation Previous section History of breast surgery History of thyroid surgery Family History Brother Cancer Sister Cancer Mother Heart disease Father Heart disease Social History adopted: No household members: spouse and family housing: apartment number of children: 2 current occupational status: employed current occupation: [employer] current occupational exposures/hazards: No pets and animals: [...] testing 12/19/23 0837 Date Vikash Redmond MD Cosigncaryn Signature: Date (if applica (more content not included)... Normal [facility] Re-Evaluation - PT (1)on Re-Evaluation - PT (1) [facility] [address] [place] [address] / REEVALUATION / MEDICARE RECERTIFICATION PHYSICAL THERAPY MR#: [id number] Acct: [id number] Name: TANJA BUSH Rep #: [id number] : 1960 63 From: Nghia Quintana DPT, OCS, CSCS Referring Dr.: Dr. Vikash Redmond MD Status:REG RCR Insurance: [facility] SELF PAY INSURANCE Re-Evaluation Intro: Dr. Vikash [...] do not hesitate to contact me at [phone] by phone or if you have questions or concerns regarding this new plan of care! Sincerely, HEDY HernandezT, OCS, CSCS 12/19/23 0824 CC: Dr. Vikash Redmond MD; Dr. Gumaro Garcia MD EBG Signed For Medicare only, by signing this I certify the plan of care. _ Physicians Signature Date Normal [facility] Inital Evaluation (1) - PTon 11-28-2023 Inital Evaluation (1) - PT [facility] [address] [place] [address] / REHABILITATION SERVICES INITIAL EVALUATION MR#: [id number] Acct: [id number] Name: TANJA BUSH Rep #: [id number] : 1960 63 From: Nghia Quintana DPT, OCS, CSCS Referring Dr.: Dr. Vikash Redmond MD Status: R EG RCR Insurance: [employer] SELF PAY INSURANCE Patient's Visit Information Visit Information Visit Information: TANJA BUSH is a 63 year old F referred to Physical Therapy by Dr. Vikash Redmond MD with a diagnosis of L shoulder pain. Date of Evaluation: 11/28/23 Physical Therapist: Nghia Quintana DPT, OCS, CSCS Visit Plan Frequency: 2x [...] back. After work is worse. 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 40 [...] to be FAXED BACK to us at [phone] for Medicare purposes. For Medicare only, by signing this I certify the plan of care. Please let me know if there are questions or concerns regarding this plan of care. Physician Signature: __ (more content not included)... Normal [facility] Staff Cytotechnologist Office Visit Reporton 10-26-2023 Staff Cytotechnologist Office Visit Report [facility], [address] [place] [address] OFFICE VISIT Date of Service: 10/26/23 MR#: [id number] Acct: [id number] Name: TANJA BUSH Rep #: [id number] : 1960 Provider: ROLANDO Glass Age/Sex: 63/F Location: [facility] Status: Signed Intake Vital Signs 11/10/21 13:26 10/03/23 08:18 10/26/23 08:56 Height 5 ft 7 in 5 ft 7 in 5 ft 7 in Weight: 143 lb 4 oz 140 lb 6 oz BMI 22.4 21.9 BP 131/73 H Intake Visit 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) Chief Complaint: annual Belt Sander Required: No Is patient in pain?: No [...] : No : No Control Method: menopause PFSH Medical History Left shoulder pain Skin cancer Constantin's disease COVID-19 Thyroid disease Surgical History History of endometrial ablation Previous section History of breast surgery History of thyroid surgery Family History Brother Cancer Sister Cancer Mother Heart disease Father Heart disease Social History adopted: No household members: spouse and family housing: apartment number of children: 2 current occupational status: employed current occupation: [employer] current occupational exposures/hazards: No pets and animals: [...] Date Name GA/Weeks Outcome Route Bth Weight Infant Gen Labor Lgth Anesthesia Del Locatn Provider [...] Orientation: al (more content not included)... Normal [facility] Orthopedic Visit Reporton Orthopedic Visit Report [facility] [address] [place], [place] [id number] OFFICE VISIT Date of Service: 10/03/23 MR#: [id number] Acct: [id number] Name: TANJA BUSH Rep #: [id number] : 1960 Provider: Dr. Vikash sanchez MD Age/Sex: 63/F Location: [facility] Status: Signed with Addenda ADDENDUM by Shelley [...] Performing Provider: Vikash Redmond MD Performing Location: [facility] Administered by: Vikash Redmond MD on 10/03/23 08:50 Dose Route Admin Location Dispensed Lot Number Expiration Date JORGE [place] ufacturer 80 mg intra-articular Left Shoulder 2 mL [id number] 06/05/25 1901-1607-72 [employer] Date cc: * Signed Intake Vital [...] 2 current occupational status: employed current occupation: [employer] current occupational exposures/hazards: No pets and animals: [...] of the arm. RHD. 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 Ortho Exam General General: Yes no acute distress Neurologic: Yes alert and Yes oriented x3 Psychologic: Yes reasonable and appropriate Left Shoulder Skin/Wound: Yes CDI, No ecchymosis, No erythema and No swelling Testing: Yes Hawkin's, No Neer's, No Speed's, No TTP Biceps, No TTP AC Joint, Yes AROM-Forward Elevation 0-180, Yes AROM-External Rotation at side 0-60, Yes empty can, No L[place]kin, No cross arm, No scapular winging and Yes belly press normal SHOULDER: normal motor and sens to axillary N, MRU and AIN/PIN. Hand warm well perfused normal radial pulse strength in FE and ER 5/5 crepitus with ROM testing Supplemental Info X-rays 4 views left shoulder obtained show normal for age radiographs. Very mild early (more content not included)... Normal [facility] Shoulder min 2 Viewson 10-02 Shoulder min 2 Views [facility] [address] [place] [address] Shoulder min 2 Views MR#: [id number] Acct: [id number] Name: TANJA BUSH Rep #: [id number] : 1960 F 63 From: Best Ding PCP: Dr. Gumaro Garcia MD Status: DEP AMB Study: Shoulder min 2 Views Date of Exam: 10/03/23 Exam# [id number] Ordering Dr: Vikash Redmond MD -[id number] INDICATION: pain EXAMINATION/TECHNIQ UE: X-RAY - [...] Vikash Redmond MD; Dr. Gumaro Garcia MD Advertising Solicitor: Signed Normal [facility] Absolute lymphocyte countOrd ered By: Gumaro Garcia on 09-08-2022 Lymphocytes Auto (Unsp spec) [#/Vol] 1.78 10*3/uL 0.83-4.51 [facility] Basophil percentageOrdered B y: Gumaro Garcia on 09-08-2022 Basophils/100 WBC (Bld) 1.1 % 0-1 [facility] Bilirubin [Mass/Vol] 0.50 mg/dL 0.20-1.00 [facility] Comment on above: For patients on eltr ombopag therapy, use of Dimension Sulphur TBIL is not recommended. Chloride [Moles/Vol] 108 mmol/L 98-107 [facility] Eosinophils/100 WBC (Bld) 2.9 % 0-5 [facility] Glucose [Mass/Vol] 94 mg/dL 74-106 [facility] Neutrophils (Bld) [#/Vol] 2.1 10*3/uL 2.0-7.7 [facility] Neutrophils/100 WBC (Bld) 46.6 % 47-70 [facility] Potassium [Moles/Vol] 3.9 mmol/L 3.5-5.1 [facility] Protein [Mass/Vol] 7.3 g/dL 6.4-8.2 [facility] Sodium [Moles/Vol] 138 mmol/L 136-145 [facility] WBC (Bld) [#/Vol] 4.5 10*3/uL 4.4-11.0 [facility] Blood erythrocytes count (nu mber/volume)Ordered By: Gumaro Garcia on 09-08-2022 RBC (Bld) [#/Vol] 4.33 10*6/uL 4.2-5.4 [facility] Blood hemoglobin measurement (mass/volume)Ordered By: Gumaro Garcia on 09-08-2022 Hemoglobin (Bld) [Mass/Vol] 13.2 g/dL 12.0-15.0 [facility] Blood lymphocytes/100 leukoc ytesOrdered By: Gumaro Garcia on 09-08-2022 Lymphocytes/100 WBC (Bld) 39.8 % 19-41 [facility] Blood monocytes/100 leukocyt esOrdered By: Gumaro Garcia on 09-08-2022 Monocytes/100 WBC (Bld) 9.4 % 0-10 [facility] Blood platelet mean volumeOr dered By: Gumaro Garcia on 09-08-2022 Platelet mean volume (Bld) [Entitic vol] 12.1 fL 6.2-12.0 [facility] Determination of erythrocyte mean corpuscular volume (MCV)Ordered By: Gumaro Garcia on 09-08-2022 MCV (RBC) [Entitic vol] 92.4 fL 81-99 [facility] Hematocrit Auto (Bld) [Volum e fraction]Ordered By: Gumaro Garcia on 09-08-2022 Hematocrit (Bld) [Volume fraction] 40.0 % 37-47 [facility] Laboratory - Chemistry and C hemistry - challengeOrdered By: Gumaro Garcia on 09-08-2022 ALP [Catalytic activity/Vol] 73 U/L 45-117 [facility] ALT [Catalytic activity/Vol] 19 U/L 13-56 [facility] CO2 [Moles/Vol] 26.0 mmol/L 21.0-32.0 [facility] Globulin (S) [Mass/Vol] 3.6 g/dL 2.2-4.2 [facility] Urea nitrogen/Creatinine [Mass ratio] 26.4 mg/mg 10-20 [facility] Laboratory - Hematology and Cell countsOrdered By: Gumaro Garcia on 09-08-2022 Erythrocyte distribution width (RBC) [Entitic vol] 43.5 fL 35.1-43.9 [facility] Erythrocyte distribution width (RBC) [Ratio] 12.8 % 11.6-14.6 [facility] Immature granulocytes/100 WBC (Bld) 0.200 % 0.0-0.9 [facility] Comment on above: IG% - Immature Granu locytes (promyelocytes, myelocytes and metamyelocytes) > 1% indicates that a LEFT SHIFT is Present. MCH (RBC) [Entitic mass] 30.5 pg 27.0-32.0 [facility] Nucleated RBC/100 WBC (Bld) [Ratio] 0 % 0-5 [facility] MCHC Auto (RBC) [Mass/Vol]Or dered By: Gumaro Garcia on 09-08-2022 MCHC (RBC) [Mass/Vol] 33.0 g/dL 32-36 [facility] No Panel InformationOrdered By: Gumaro Garcia on 09-08-2022 Estimated GFR (MDRD) Amer 121 mL/min >60 [facility] Comment on above: GFR Calc Estimated GFR (MDRD) Non-Af Amer 100 mL/min >60 [facility] Comment on above: Non- GFR Calc Thyroid Stimulating Hormone (TSH) 0.60 uIU/mL 0.358-3.74 [facility] Platelets bldOrdered By: Gumaro Garcia on 09-08-2022 Platelets (Bld) [#/Vol] 160 10*3/uL 150-450 [facility] Serum or plasma albumin tejal urement (mass/volume)Ordered By: Gumaro Garcia on 09-08-2022 Albumin [Mass/Vol] 3.7 g/dL 3.2-5.0 [facility] Serum or plasma albumin/glob ulin mass ratioOrdered By: Gumaro Garcia on 09-08-2022 Albumin/Globulin [Mass ratio] 1.0 {ratio} 0.9-2.4 [facility] Serum or plasma calcium tejal urement (mass/volume)Ordered By: Gumaro Garcia on 09-08-2022 Calcium [Mass/Vol] 9.0 mg/dL 8.5-10.1 [facility] Serum or plasma creatinine m easurement (mass/volume)Ordered By: Gumaro Garcia on 09-08-2022 Creatinine [Mass/Vol] 0.64 mg/dL 0.55-1.02 [facility] Comment on above: The validity of the calculated GFR & GFRAA in patients over 70 years has not been determined. Clinical correlation is essential. Serum or plasma urea nitroge n measurement (mass/volume)Ordered By: Gumaro Garcia on 09-08-2022 Urea nitrogen [Mass/Vol] 17 mg/dL 7-18 [facility] Thin prep Papanicolaou smear with manual screeningOrdered By: Gumaro Garcia on 09-08-2022 Thin prep Papanicolaou smear with manual screening 18 U/L 15-37 [facility] Thin prep Papanicolaou smear with manual screening 4 5-15 [facility] No Panel Informationon 12-24 Thyroid Stimulating Hormone (TSH) 0.39 uIU/mL 0.358-3.74 [facility] Work Phone: No Panel Informationon 10-22 Thyroid Stimulating Hormone (TSH) 0.14 uIU/mL 0.358-3.74 [facility] Work Phone: Absolute lymphocyte counton 09-02-2021 Lymphocytes Auto (Unsp spec) [#/Vol] 1.69 10*3/uL 0.83-4.51 [facility] Work Phone: Basophil percentageon 2021 Basophils/100 WBC (Bld) 0.9 % 0-1 [facility] Work Phone: Bilirubin [Mass/Vol] 0.50 mg/dL 0.20-1.00 [facility] Work Phone: Comment on above: For patients on eltr ombopag therapy, use of Dimension Sulphur TBIL is not recommended. Chloride [Moles/Vol] 108 mmol/L 98-107 [facility] Work Phone: Eosinophils/100 WBC (Bld) 3.3 % 0-5 [facility] Work Phone: Glucose [Mass/Vol] 98 mg/dL 74-106 [facility] Work Phone: Neutrophils (Bld) [#/Vol] 2.2 10*3/uL 2.0-7.7 [facility] Work Phone: Neutrophils/100 WBC (Bld) 48.3 % 47-70 [facility] Work Phone: Potassium [Moles/Vol] 4.3 mmol/L 3.5-5.1 [facility] Work Phone: Protein [Mass/Vol] 7.0 g/dL 6.4-8.2 [facility] Work Phone: Sodium [Moles/Vol] 139 mmol/L 136-145 [facility] Work Phone: WBC (Bld) [#/Vol] 4.6 10*3/uL 4.4-11.0 [facility] Work Phone: Blood erythrocytes count (nu mber/volume)on 09-02-2021 RBC (Bld) [#/Vol] 4.20 10*6/uL 4.2-5.4 [facility] Work Phone: Blood hemoglobin measurement (mass/volume)on 09-02-2021 Hemoglobin (Bld) [Mass/Vol] 12.7 g/dL 12.0-15.0 [facility] Work Phone: Blood lymphocytes/100 leukoc yteson 09-02-2021 Lymphocytes/100 WBC (Bld) 37.0 % 19-41 [facility] Work Phone: Blood monocytes/100 leukocyt eson 09-02-2021 Monocytes/100 WBC (Bld) 10.3 % 0-10 [facility] Work Phone: Blood platelet adequacy dete ction by light microscopyon 09-02-2021 Platelets LM Ql (Bld) ADEQUATE ADEQ [facility] Work Phone: Blood platelet mean volumeon 09-02-2021 Platelet mean volume (Bld) [Entitic vol] 11.7 fL 6.2-12.0 [facility] Work Phone: Determination of erythrocyte mean corpuscular volume (MCV)on 09-02-2021 MCV (RBC) [Entitic vol] 95.2 fL 81-99 [facility] Work Phone: Hematocrit Auto (Bld) [Volum e fraction]on 09-02-2021 Hematocrit (Bld) [Volume fraction] 40.0 % 37-47 [facility] Work Phone: Laboratory - Chemistry and C hemistry - challengeon 09-02-2021 ALP [Catalytic activity/Vol] 58 U/L 45-117 [facility] Work Phone: ALT [Catalytic activity/Vol] 22 U/L 13-56 [facility] Work Phone: CO2 [Moles/Vol] 27.0 mmol/L 21.0-32.0 [facility] Work Phone: Globulin (S) [Mass/Vol] 3.3 g/dL 2.2-4.2 [facility] Work Phone: Urea nitrogen/Creatinine [Mass ratio] 34.6 mg/mg 10-20 [facility] Work Phone: Laboratory - Hematology and Cell countson 09-02-2021 Erythrocyte distribution width (RBC) [Entitic vol] 44.6 fL 35.1-43.9 [facility] Work Phone: Erythrocyte distribution width (RBC) [Ratio] 12.8 % 11.6-14.6 [facility] Work Phone: Immature granulocytes/100 WBC (Bld) 0.200 % 0.0-0.9 [facility] Work Phone: Comment on above: IG% - Immature Granu locytes (promyelocytes, myelocytes and metamyelocytes) > 1% indicates that a LEFT SHIFT is Present. MCH (RBC) [Entitic mass] 30.2 pg 27.0-32.0 [facility] Work Phone: Nucleated RBC/100 WBC (Bld) [Ratio] 0 % 0-5 [facility] Work Phone: MCHC Auto (RBC) [Mass/Vol]on 09-02-2021 MCHC (RBC) [Mass/Vol] 31.8 g/dL 32-36 [facility] Work Phone: No Panel Informationon 09-02 Atypical Lymphocytes 1+ % [facility] Work Phone: Estimated GFR (MDRD) Amer 137 mL/min >60 [facility] Work Phone: Comment on above: GFR Calc Estimated GFR (MDRD) Non-Af Amer 114 mL/min >60 [facility] Work Phone: Comment on above: Non- GFR Calc Thyroid Stimulating Hormone (TSH) 0.07 uIU/mL 0.358-3.74 [facility] Work Phone: Platelets bldon 09-02-2021 Platelets (Bld) [#/Vol] 152 10*3/uL 150-450 [facility] Work Phone: RBC morphologyon 09-02-2021 RBC morphology finding Nom (Bld) NORM C+C NORMAL NORM C&C [facility] Work Phone: Serum or plasma albumin etjal urement (mass/volume)on 09-02-2021 Albumin [Mass/Vol] 3.7 g/dL 3.2-5.0 [facility] Work Phone: Serum or plasma albumin/glob ulin mass ratioon 09-02-2021 Albumin/Globulin [Mass ratio] 1.1 {ratio} 0.9-2.4 [facility] Work Phone: Serum or plasma calcium tejal urement (mass/volume)on 09-02-2021 Calcium [Mass/Vol] 9.0 mg/dL 8.5-10.1 [facility] Work Phone: Serum or plasma creatinine m easurement (mass/volume)on 09-02-2021 Creatinine [Mass/Vol] 0.58 mg/dL 0.55-1.02 [facility] Work Phone: Comment on above: The validity of the calculated GFR & GFRAA in patients over 70 years has not been determined. Clinical correlation is essential. Serum or plasma urea nitroge n measurement (mass/volume)on 09-02-2021 Urea nitrogen [Mass/Vol] 20 mg/dL 7-18 [facility] Work Phone: Thin prep Papanicolaou smear with manual screeningon 09-02-2021 Thin prep Papanicolaou smear with manual screening 16 U/L 15-37 [facility] Work Phone: Thin prep Papanicolaou smear with manual screening 4 5-15 [facility] Work Phone: .GFRon 09-20-2018 GFR 123 ml/min/1.73sqm [facility] Comment on above: Result Comment: GFR [...] #### T SH, LIPID, CMP, GFR #### [address] [address] GFR Non- 101 ml/min/1.73sqm Normal [facility] ([place]) Comment on above: Result Comment: GFR Population [...] #### T SH, LIPID, CMP, GFR #### [address] [address] CMPon 09-20-2018 Albumin [Mass/Vol] 4.2 G/dL Normal 3.5-5.0 [facility] ([place]) Comment on above: Performed By: #### T SH, LIPID, CMP, GFR #### [address] [address] Albumin/Globulin [Mass ratio] 1.3 {ratio} Normal 1.1-2.5 [facility] ([place]) Comment on above: Performed By: #### T SH, LIPID, CMP, GFR #### [address] [address] ALP [Catalytic activity/Vol] 63 U/L Normal 40-135 [facility] ([place]) Comment on above: Performed By: #### T SH, LIPID, CMP, GFR #### [address] [address] ALT [Catalytic activity/Vol] 19 U/L Normal 10-35 [facility] ([place]) Comment on above: Performed By: #### T SH, LIPID, CMP, GFR #### [address] [address] AST [Catalytic activity/Vol] 15 U/L Normal 10-40 [facility] ([place]) Comment on above: Performed By: #### T SH, LIPID, CMP, GFR #### [address] [address] Bili Total 0.5 mg/dL Normal 0.2-1.0 [facility] ([place]) Comment on above: Performed By: #### T SH, LIPID, CMP, GFR #### [address] [address] Calcium [Mass/Vol] 9.3 mg/dL Normal 8.4-10.2 [facility] ([place]) Comment on above: Performed By: #### T SH, LIPID, CMP, GFR #### [address] [address] Chloride [Moles/Vol] 104 mmol/L Normal 98-107 [facility] ([place]) Comment on above: Performed By: #### T SH, LIPID, CMP, GFR #### [address] [address] CO2 [Moles/Vol] 29 mmol/L Normal 22-29 [facility] ([place]) Comment on above: Performed By: #### T SH, LIPID, CMP, GFR #### [address] [address] Creatinine [Mass/Vol] 0.61 mg/dL Normal 0.55-1.02 [facility] ([place]) Comment on above: Performed By: #### T SH, LIPID, CMP, GFR #### [address] [address] Electrolyte Balance 8.0 mEq/L Normal [facility] ([place]) Comment on above: Performed By: #### T SH, LIPID, CMP, GFR #### [address] [address] Globulin (S) [Mass/Vol] 3.2 G/dL Normal A [facility] ([place]) Comment on above: Performed By: #### T SH, LIPID, CMP, GFR #### [address] [address] Glucose [Mass/Vol] 100 mg/dL Normal 70-105 [facility] ([place]) Comment on above: Performed By: #### T SH, LIPID, CMP, GFR #### [address] [address] Potassium [Moles/Vol] 4.0 mmol/L Normal 3.5-5.1 [facility] ([place]) Comment on above: Performed By: #### T SH, LIPID, CMP, GFR #### [address] [address] Protein [Mass/Vol] 7.4 G/dL Normal 6.4-8.2 [facility] ([place]) Comment on above: Performed By: #### T SH, LIPID, CMP, GFR #### [address] [address] Sodium [Moles/Vol] 141 mmol/L Normal 136-145 [facility] ([place]) Comment on above: Performed By: #### T SH, LIPID, CMP, GFR #### [address] [address] Urea nitrogen [Mass/Vol] 17 mg/dL Normal 7-18 [facility] ([place]) Comment on above: Performed By: #### T SH, LIPID, CMP, GFR #### [address] [address] Urea nitrogen/Creatinine [Mass ratio] 28 ratio High 7-27 [facility] ([place]) Comment on above: Performed By: #### T SH, LIPID, CMP, GFR #### [address] [address] LIPIDon 09-20-2018 Cholesterol [Mass/Vol] 193 mg/dL Normal 0-200 [facility] ([place]) Comment on above: Result Comment: Chol esterol Reference Interval: Less than 200 Desirable 200-239 Borderline high risk 240 and above High risk Performed By: #### T SH, LIPID, CMP, GFR #### [address] [address] Cholesterol in HDL [Mass/Vol] 58 mg/dL Normal 40-60 [facility] ([place]) Comment on above: Performed By: #### T SH, LIPID, CMP, GFR #### [address] [address] Cholesterol in LDL [Mass/Vol] 126 mg/dL Normal 0-130 [facility] ([place]) Comment on above: Performed By: #### T SH, LIPID, CMP, GFR #### [address] [address] Triglyceride [Mass/Vol] 43 mg/dL Normal 0-150 [facility] ([place]) Comment on above: Result Comment: Trig lyceride Reference Interval: Less than 150 Normal 150-199 Borderline high risk 200-499 High risk 500 or higher Very high risk Performed By: #### T SH, LIPID, CMP, GFR #### [address] [address] TSHon 09-20-2018 TSH Qn 0.87 mcIU/mL Normal 0.36-3.74 [facility] ([place]) Comment on above: Performed By: #### T SH, LIPID, CMP, GFR #### [address] [address] [place] MAMMOGRAM DIAGNOSTIC BILA TERALon 03-15-2018 [place] MAMMOGRAM DIAGNOSTIC BILATERAL ORIGINAL FROM: [place] [id number] PROCEDURE FOR: TANJA BUSH [address] [place] [address] Home: PID#: [id number] Exam#: [id number] : 1960 Age: 57 TO: MERLY CACERES APRN [place] [id number] #[id number] BILATERAL DIGITAL DIAGNOSTIC MAMMOGRAM 3D/2D WITH CAD WITH MEDIOLATERAL OBLIQUE CRANIOCAUDAL SPOT COMPRESSION: 03/15/2018 CLINICAL: BILATERAL CALCIFICATIONS. Comparison is made to exams dated: 09/08/2017 mammogram and 08/31/2017 mammogram - [facility]. The tissue of both breasts is [...] months is recommended to demonstrate stability.(09/15/19 19) RTACI GATICA MD ab/:03/15/2018 11:33:22 Chief Operating Engineer(s): RT KESHIA(R) (M), [facility] letter sent: Probably Benign BI-RADS 3 Mammogram BI-RADS: 3 Probably benign Normal [facility] ([place]) Vital Signs Date Time Vital Sign Value Performing Clinician Shelton amor 07-22-2024 10:34-0400 Body temperature 98 [degF] Dr. Gumaro Garcia MD Work Phone: [facility] 07-22-2024 10:34-0400 Diastolic blood pressure 78 mm[Hg] Dr. Gumaro Garcia MD Work Phone: [facility] 07-22-2024 10:34-0400 Heart rate 79 /min Dr. Gumaro Garcia MD Work Phone: [facility] 07-22-2024 10:34-0400 Respiratory rate 15 /min Dr. Gumaro Garcia MD Work Phone: [facility] 07-22-2024 10:34-0400 SaO2% (BldA) [Mass fraction] 98 % Dr. Gumaro Garcia MD Work Phone: [facility] 07-22-2024 10:34-0400 Systolic blood pressure 134 mm[Hg] Dr. Gumaro Garcia MD Work Phone: [facility] 11-10-2021 13:26-0400 Body height 170.[address] Gumaro Garcia Work Phone: [facility] Work Phone: 11-10-2021 13:24-0400 Body mass index (BMI) [Ratio] 22.5 kg/m2 Dr. Gumaro Garcia Work Phone: [facility] Work Phone: 11-10-2021 13:24-0400 Body weight 65.[address] Gumaro Garcia Work Phone: [facility] Work Phone: 11-10-2021 13:24-0400 Diastolic blood pressure 88 mm[Hg] Dr. Gumaro Garcia Work Phone: [facility] Work Phone: 11-10-2021 13:24-0400 Systolic blood pressure 116 mm[Hg] Dr. Gumaro Garcia Work Phone: [facility] Work Phone: Encounters Encounter Date Encounter Type Care Provider Facility Start: 10-20-2062 ambulatory Gumaro Chi Jose Facility:[facility] Start: 10-08-2024 ambulatory Ugmaro Chi Jose Facility:[facility] Start: 09-28-[address] Gumaro Garcia MD -Cat Scan [facility] Work Phone: Start: 09-28-2024 ambulatory Gumaro Chi Jose Facility:[facility] Start: 09-24-2024 End: 09-24-[address] Gumaro Garcia MD Work Phone: -Outpatient Breast Imaging Start: 09-24-2024 End: 09-24-[address] Gumaro Garcia MD -Outpatient Breast Imaging Work Phone: Start: 09-24-2024 End: 09-24-2024 ambulatory Gumaro Chi Jose Facility:[facility] Start: 09-17-2024 End: 09-17-[address] Gmuaro Garcia MD Work Phone: -Laboratory Phy Office 3rd Flr Start: 09-17-2024 End: 09-17-[address] Gumaro Garcia MD -Laboratory Phy Office 3rd Flr Start: 09-17-2024 End: 09-17-2024 ambulatory Gumaro Garcia Facility:[facility] Start: 07-22-2024 End: 07-22-2024 Patient encounter procedure Beto Villalpando PI/SENIOR RESEARCH ASSOCIATE-C [facility] Work Phone: Start: 07-22-2024 End: 07-22-[address] Gumaro Garcia MD Work Phone: [facility] Work Phone: Start: 02-16-2024 ambulatory [facility] Jose Facility:[facility] Start: 02-14-2024 End: 02-14-2024 ambulatory Leander KYLE Facility:[facility] Start: 12-29-2023 ambulatory Toño Villafuerte Facility:[facility] Start: 12-19-2023 End: 12-19-2023 [facility] Start: 10-26-2023 End: 10-26-2023 ambulatory Aydee Delatorre Facility:[facility] Start: 10-03-2023 End: 10-03-2023 ambulatory Vikash Redmond Facility:[facility] Start: 09-20-2022 End: 09-20-2022 ambulatory [facility] Work Phone: Start: 09-20-2022 End: 09-20-2022 Patient encounter procedure [facility]-Outpatient Breast Imaging Work Phone: Start: 09-08-2022 End: 09-08-2022 ambulatory [facility] Work Phone: Start: 09-08-2022 End: 09-08-2022 Patient encounter procedure [facility]-Laboratory, Phy Office 3rd Flr Start: 12-24-2021 End: 12-24-[address] Gumaro Garcia Work Phone: [facility] Work Phone: Start: 12-24-2021 End: 12-24-[address] [facility] Start: 11-10-2021 End: 11-10-[address] Gumaro Garcia Work Phone: [facility] Start: 10-22-2021 End: 10-22-[address] [facility]umaro Garcia [facility] Start: 09-18-2021 End: 09-18-2021 Patient encounter procedure [facility]-Outpatient [facility] Start: 09-16-2021 End: 09-16-2021 Patient encounter procedure [facility] Start: 09-02-2021 End: 09-02-2021 [facility] Procedures Date Procedure Procedure Detail Performing Clinician Start: 09-28-2024 CT angiography of co ronary arteries Dr. Gumaro Garcia MD Work Phone: Start: 09-24-2024 Screening mammography Timur Garcia MD Work Phone: Start: 09-17-2024 Lymphocyte percent differential count Dr. Gumaro Garcia MD Work Phone: Start: 09-20-2022 Screening mammography Start: 09-18-2021 Mammography Start: 09-16-2021 CT of chest Start: 09-16-2021 Screening mammography Plan of Treatment Date Care Activity Detail Author MG Breast - bilateral Screening [facility] Work Phone: Payers Date Payer Category Payer Self-pay [id number] 2015 Unknown [id number] Unknown [id number] 2.16.8 [id number] Unknown [id number] 2.16.8 [id number] Unknown [id number] 2.16.8 [id number] Unknown [id number] 2.16.8 [id number] Unknown [id number] 2.16.8 [id number] Unknown [id number] 2.16.8 [id number] Unknown [id number] 2.16.8 [id number] Unknown [id number] 2.16.8 [id number] Unknown [id number] 2.16.8 [id number] Unknown [id number] 2.16.8 [id number] Unknown [id number] 2.16.8 [id number] Unknown [id number] 2.16.8 [id number] Unknown [id number] 2.16.8 [id number] Unknown [id number] 2.16.8 [id number] Social History Date Type Detail Facility Start: 03-13-2021 End: 11-10-2021 Tobacco smoking status NHIS Unknown if ever smoked [facility] Start: 1960 Sex Assigned At Female [facility] Start: 11-10-2021 Tobacco smoking stat us NHIS Ex-smoker (finding) [facility] Evaluation note 07-22-2024 Note Date & Type Note Facility 07-22-2024 Evaluation note Diagnosis Onset Date Resolution URI (upper respiratory infection) acute July 22, 2024 10:28am [facility] Work Phone: Evaluation note Note Date & Type Note Facility Evaluation note No assessment information availa ble [facility] Work Phone: Evaluation note Note Date & Type Note Facility Evaluation note Diagnosis Onset Date Encounter for routine gyneco logical examination noneactive [facility] Work Phone: Evaluation note Note Date & Type Note Facility Evaluation note Diagnosis Onset Date Resolution URI (upper respiratory infection) acute July 22, 2024 10:28am [facility] Work Phone: Reason for referral (narrative) Note Date & Type Note Facility Reason for referral (narrative) No reason for referral information available [facility] Work Phone: Summary Purpose Family History No [...] Complaint SCREENING RT BREAST ABN MAMM 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 Reason for Visit Encounter for routin e gynecological examination Chief Complaint SCREENING Chief Complaint Admit Date DEEP COUGH July 22, 2024 10:28 am Reason for Visit Admit Date URI (upper respiratory infection) July 222024 10:28am Chief Complaint Admit Date DEEP COUGH July 22, 2024 10:28 am SCREENING September 24, 2024 3:18 pm SCREENING September 28, 2024 2:21 pm Additional Source Comments INFORMATION SOURCE (unrecogn ized section and content) DATE CREATED AUTHOR 09/25/2018 [facility] ([place]) DATE CREATED AUTHOR AUTHOR'S ORGANIZ ATION 10/02/2024 [facility] Goals (unrecognized section and content) Goals [...] Member Role Status Dates Dr. Scar Mcqueen , DO Family Provider Active Dr. Gumaro Garcia [...] 2024 End: July 22, 2024 Beto Villalpando PI/SENIOR RESEARCH ASSOCIATE, PI/SENIOR RESEARCH ASSOCIATE-C Attending Provider Active S tart: July 22, [...] End: July 22, 2024 Beto Villalpando NP, PI/SENIOR RESEARCH ASSOCIATE-C Attending Provider Active S tart: July 22, 2024 End: July 22, 2024 Team Status: Inactive Member Role/Relationship Status Dates Dr. Gumaro Garcia MD Primary Care Provider Active Start: September 17, 2024 End: September 17, 2024 Dr. Gumaro Garcia MD Attending Provider Active Start: September 17, 2024 End: September 17, 2024 Team Status: Inactive Member Role/Relationship Status Dates Dr. Gumaro Garcia MD Primary Care Provider Active Start: September 24, 2024 End: September 24, 2024 Dr. Gumaro Garcia MD Attending Provider Active Start: September 24, 2024 End: September 24, 2024 Dr. Gumaro Garcia MD Referring Provider Active Start: September 24, 2024 End: September 24, 2024 Team Status: Active Member Role/Relationship Status Dates Dr. Gumaro Garcia MD Primary Care Provider Active Start: September 28, 2024 Dr. Gumaro Garcia MD Attending Provider Active Start: September 28, 2024 Dr. Gumaro Garcia MD Referring Provider Active Start: September 28, 2024 FOR RECORDS PERTAINING TO PATIENTS WHO [...] BE BASED ON THE PRIMARY CLINICAL RECORDS. [facility]. provides no warranty or guarantee of the accuracy or completeness of information in this document.
--- NOTE | 2024-10-08 06:20 | CT_ITS ---
PROCEDURE: LOW DOSE CT LUNG SCREENING 10/08/2024 REASON FOR EXAM: PERSONAL HISTORY OF NICOTINE DEPENDENCE Former smoker. Patient has smoked 1 pack per day for 20 years. TECHNIQUE: LOW DOSE CT LUNG SCREENING Coronal and Sagittal reconstruction series were provided. One or more dose reduction techniques were used (e.g., Automated exposure control, adjustment of the mA and/or kV according to patient size, use of iterative reconstruction technique). REFERENCE LINK: [facility] Lung-RADS RADIATION DOSE SUMMARY: CTDlvol: 2.01 mGy DLP: 72.98 mGycm COMPARISON: Prior study dated September 16, 2021. FINDINGS: PULMONARY NODULES: (Only nodules >3mm are reported) Nodules described below are on series 1 unless otherwise specified. Pulmonary Nodules: No suspicious pulmonary nodule is seen. Hardware:None Lymph Nodes:Small benign-appearing mediastinal lymph nodes. Heart and Vasculature:The heart is not enlarged. Coronary Artery Calcifications: Present Lungs and Airways: Scarring at the lung apices. [id number] degree of emphysematous changes. Pleura:Unremarkable Upper Abdomen:Unremarkable Bones:Degenerative changes of the thoracic spine. CT/Low Dose CT Lung Screening IMPRESSION: No suspicious nodule is seen. Emphysematous changes. Coronary artery calcification (CAC) is is present Lung-RADS Category: 2 BENIGN (BASED ON IMAGING FEATURES OR INDOLENT BEHAVIOR). RECOMMEND 12-MONTH SCREENING LDCT. Other Significant Findings: Mild degenerative changes of the visualized thoraci c spine. Reading Location: [facility]
== END | disposition home or self-care (01) ==
LOC: CT 06:05
PROVIDERS: PCP Family Medicine Geriatric Medicine; Referring Provider Family Medicine Geriatric Medicine; Visit Provider Family Medicine Geriatric Medicine
DX: Z87.891 Personal history of nicotine dependence (principal)
CPT/HCPCS: 71271